=== PATIENT | male | born 1955 | race Caucasian/White ===

== ENCOUNTER → 2024-03-13 07:08 | Outpatient (REF) | payer MEDICARE, OTHER, SELFPAY | LOC: HWRCS 07:08 | PROVIDERS: ATTENDING PHYSICIAN Family Medicine | DX: I35.0 Nonrheumatic aortic (valve) stenosis (principal) | CPT/HCPCS: 93306 ==

== ENCOUNTER 2024-05-09 06:12 | Day surgery (SDC) | payer MEDICARE, OTHER, SELFPAY ==
[2024-05-09] VITALS (11 sets, daily range): BP systolic 83–142; BP diastolic 58–88; BMI 43.6
[2024-05-09] MEDS: NSS 401 ML IV (06:58)
[2024-05-09] MEDS: LOW STRENGTH ASPIRIN 324 MG PO (06:59)
[2024-05-09 07:03] LABS: Hematocrit 41.5 % (39.0-52.0); Hemoglobin 14.8 g/dL (13.0-18.0); Mean Corp Hgb Conc. 35.7 g/dL (33.0-37.0); Mean Corpuscular Hgb 33.6 pg (27.0-31.0); Mean Corpuscular Volume 94.1 fL (80.0-94.0); Mean Platelet Volume 9.6 fL (7.4-10.4); Platelet Count 178 10^3/uL (130-400); Red Blood Cell Count 4.41 10^6/uL (4.70-6.10); Red Cell Dist. Width 12.8 % (11.5-14.5)
[2024-05-09 07:18] LABS: INR 1.08; PT 13.8 Sec (11.4-14.6)
[2024-05-09 07:19] LABS: APTT 34.2 Sec (23.4-35.0)
[2024-05-09 07:24] LABS: ALT (SGPT) 25 U/L (0-50); AST (SGOT) 27 U/L (17-59); Albumin 4.3 g/dl (3.5-5.0); Alkaline Phosphatase 62 U/L (38-126); Blood Urea Nitrogen 16 mg/dl (9-20); Calcium 9.6 mg/dl (8.4-10.2); Carbon Dioxide 26 mmol/L (22-30); Chloride 104 mmol/L (98-107); Estimated Creatinine Clearance 104 ml/min; Glucose 180 mg/dl (70-99); Potassium 4.5 mmol/L (3.5-5.1); Sodium 137 mmol/L (135-145); Total Bilirubin 0.7 mg/dl (0.2-1.3); Total Protein 6.9 g/dl (6.3-8.2); eGFR > 60.00
--- NOTE | 2024-05-09 07:34 | ITS.CL.CATH ---
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
Cardiac Catheterization
Procedure Report:
LEFT HEART CATHETERIZATION
Date of Procedure: May 09, 2024
Referring: Fuentes Hayes.
PROCEDURES:
1. Left Heart catheterization and coronary angiogram.
2. Ultrasound-guided
INDICATION: Mr France is a 68-year-old gentleman with morbid obesity, hypertension, hyperlipidemia, prediabetes, prostate cancer status post surgery in 2018 now in remission with ongoing dyspnea on exertion found to now have severe aortic stenosis
with mean transaortic gradient of 49 mmHg on most recent echocardiogram on March 13, 2024 now being referred for left heart catheterization to rule out obstructive CAD and initiate TAVR workup.
ACCESS: Right radial artery, 6 Persian sheath, under ultrasound guidance
HEMODYNAMICS : (mmHg)
AO (s/d) : 111/74
Aortic valve was not crossed in the setting of severe aortic stenosis which is known by echocardiogram
CORONARY FINDINGS
DOMINANCE: Right
LEFT MAIN: The left main artery is a large-caliber vessel which gives rise to the left anterior descending artery, the left circumflex artery and the ramus intermedius artery. There is mild 20% tapering of the distal left main but otherwise minimal
luminal irregularities.
LEFT ANTERIOR DESCENDING: The left anterior descending artery is a medium to large caliber vessel which gives rise to 2 small caliber diagonal branches as it courses through the anterior interventricular groove towards the apex. There is a
calcified 80% mid LAD stenosis at the level of the takeoff of a small caliber D1 and the septal branch. D1 also has eccentric 70% ostial stenosis.
CIRCUMFLEX: The left circumflex artery is a medium caliber vessel which gives rise to small caliber left posterolateral branches. There is minimal luminal irregularities.
RAMUS INTERMEDIUS: The ramus intermedius branch is a medium caliber vessel which gives rise to 1 major branch. There is 30% stenosis in the mid vessel.
RIGHT CORONARY ARTERY: The right coronary artery is a large-caliber, dominant vessel which gives rise to the right posterior descending artery and the right posterolateral system. There is a 30 to 40% eccentric stenosis in the mid to distal RCA.
Otherwise there is mild diffuse atherosclerotic plaque.
SEDATION: 21 minutes of procedural sedation was utilized. An independent biomedical service engineer was present to assist with and help manage the patient's level of consciousness and physiologic status.
RADIATION SUMMARY: Fluoro Time (min): 3.5, Dose (mGy): 497.78, DAP (Gy.cm2) : 31.2
Closure Device: Vascular band over right radial artery, 10 cc of air
CONCLUSIONS
1. Significant one-vessel coronary artery disease involving mid LAD which has a calcified 80% stenosis at the level of the takeoff of a small caliber diagonal branch and the septal branch. D1 also has an eccentric 70% ostial stenosis.
2. Mild to moderate coronary artery disease otherwise.
3. Known symptomatic severe aortic stenosis with most recent echocardiogram in February 2024 showing a mean transaortic gradient of 49 mmHg.
RECOMMENDATIONS
1. Continue with CT of chest abdomen and pelvis per TAVR protocol and CT surgery consult with plan for subsequent discussion at the structural heart meeting in regards to candidacy for PCI/TAVR versus single-vessel CABG/SAVR.
2. Optimization of goal-directed medical therapy in the meantime and aggressive management of cardiovascular risk factors.
3. Wean radial band per protocol.
Copy to: Fuentes Hayes.
Afia Johnson MD, [facility], [facility]
--- NOTE | 2024-05-09 08:39 | CONSULT.STRU ---
Consultation
-
Date/Time Consultation Requested: 05/09/2024
Date/Time Consultation Performed: 05/09/2024
Requesting Provider: Afia Johnson MD
Performing Provider: KYLE Phelan
Reason for Consultation: /TAVR
Patient History
Physicians
Family Physician: Marco Epperson DO
Outpatient Phonograph Needle Tip Maker: Clark Arce DO
Primary Phonograph Needle Tip Maker: Clark Arce DO
History of Present Illness
Mr. 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 Echocardiogram from 03/13/2024 is notable for: EF 60-65%, AV P/M 77/49, ALY 1.0, no AI, MAC, trace MR, trivial TR, PAP
21. Cardiac catheterization from today (05/09/2024) is notable for 70% stenosis in mLAD. Reviewed the pathophysiology and treatment options of including SAVR and TAVR. Explained the evaluation process comprising of CT scan, CT surgical consult,
dental clearance, and a heart team discussion. TAVR booklet, prescriptions, appointments, and contact information given to patient. Allowed for and answered questions at bedside.
Past Medical History
Past Medical History: CAD (mLAD), HTN, Hypercholesterolemia, NIDDM, REY (CPAP), Valvular Disease (aortic stenosis) and Other (osteoarthritis, prostate cancer, urinary incontinence, colon polyps, varicella)
Past Surgical History
Past Surgical History: Appendectomy, Urological (Prostatectomy, artificial urinary sphincter) and Other (bilateral cataract surgery)
Dental History
Dr. Gutierrez and Dr. Anderson--Dental clearance form faxed
Family History
Mother: at Age (75) and Cause of (cancer)
Father: at Age (85) and Cause of
Family Medical History: CAD and Cancer
Social History
Alcohol: Occasional
Drug: None
Tobacco: Non-Smoker
Personal:
Living: Alone
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
Allergies
Allergy/AdvReac Type Severity Reaction Status Date / Time
No Known Allergies Allergy Unverified 05/09/24 07:05
Home Medications
�Medication �Instructions �Recorded �Confirmed �Type
aspirin 81 mg tablet,delayed 81 mg PO HS 07/15/18 05/09/24 History
release
cholecalciferol (vitamin D3) 25 1,000 unit PO HS 07/15/18 05/09/24 History
mcg (1,000 unit) capsule (Vitamin
D3)
lisinopril 5 mg tablet 5 mg PO DAILY ##30 08/10/18 05/09/24 Rx
ascorbic acid (vitamin C) 500 mg 500 mg PO DAILY 05/09/24 05/09/24 History
tablet (Vitamin C)
metoprolol succinate 25 mg 25 mg PO DAILY #90 tabs 05/09/24 Rx
tablet,extended release 24 hr
(Toprol XL)
rosuvastatin 40 mg tablet 40 mg PO DAILY #90 tabs 05/09/24 Rx
STS%
STS %: 2.297 (AVR+CABG), 0.965 (AVR)
Review of Systems
-
History Source: Patient
General: Reports No Symptoms
HEENT: Reports No Symptoms
Respiratory: Reports Other (mild LAGUNA)
Cardiac: Reports No Symptoms
Abdomen/GI: Reports No Symptoms
: Reports No Symptoms
Musculoskeletal: Reports No Symptoms
Skin: Reports No Symptoms
Neurological: Reports No Symptoms
Vascular: Reports No Symptoms
Physical Exam
Vital Signs
Temp 97.9 F 05/09/24 06:31
Temp route: Oral 05/09/24 06:31
Pulse 70 05/09/24 07:05
Resp Rate 17 05/09/24 07:05
Blood pressure 126/69 05/09/24 07:05
Blood pressure extremity used: Right upper arm 05/09/24 08:18
Position: Lying 05/09/24 08:18
MAP (cuff-Antoni Monitor) 87 05/09/24 07:05
SaO2 97 05/09/24 07:05
Oxygen Mode of Delivery Room air 05/09/24 08:18
Can the patient verbally communicate their pain? Yes 05/09/24 08:18
Actual Weight 133.81 kg 05/09/24 06:25
Body Mass Index (BMI) 43.6 05/09/24 06:25
Labs
05/09/24 06:30
05/09/24 06:30
PT 13.8 Sec (11.4-14.6) 05/09/24 06:30
APTT 34.2 Sec (23.4-35.0) 05/09/24 06:30
Diagnostic Studies
Echocardiogram: 03/10/2024:
Left Ventricle
Normal left ventricular size and systolic function. Mild concentric left
ventricular hypertrophy. No regional wall motion abnormalities are seen. LV
ejection fraction is 60-65% by Polanco's method of discs. Normal diastolic
function.
Right Ventricle
Normal right ventricular size and function.
Left Atrium
Indexed LA volume is within normal range (15-34 mL/m2).
Right Atrium
Normal right atrial size.
Mitral Valve
Mitral valve opens normally. Thickened mitral valve leaflets with mitral
annular calcification. Trace mitral regurgitation.
Aortic Valve
Thickened and calcified aortic valve with severe aortic stenosis. Peak/mean
gradients across the aortic valve are 77/49 mmHg, respectively. The aortic
diameter of 2.3 cm. No aortic regurgitation is seen.
Tricuspid Valve
Tricuspid valve opens normally with trivial tricuspid regurgitation. Estimated
pulmonary artery pressure of 21 mmHg assuming a right atrial pressure of 3
mmHg.
Pulmonic Valve
Pulmonic valve is grossly normal but poorly visualized. No pulmonic
regurgitation is seen.
Pericardium\\Pleura
No pericardial or pleural effusions seen.
Aorta
Normal size aortic root and normal size aorta. The aortic arch is normal in
caliber.
Other Finding
The IVC is of normal size and demonstrates normal respiratory variation.
Interatrial septum is intact with no evidence of shunting by color flow
Doppler.
MEASUREMENTS (Male / Female) Normal Values
2D ECHO
LV Diastolic Diameter PLAX 4.1 cm 4.2 - 5.9 / 3.9 - 5.3 cm
LV Systolic Diameter PLAX 2.7 cm
IVS Diastolic Thickness 1.1 cm 0.6 - 1.0 / 0.6 - 0.9 cm
LVPW Diastolic Thickness 1.2 cm 0.6 - 1.0 / 0.6 - 0.9 cm
LV Relative Wall Thickness 0.6
LVOT Diameter 2.3 cm
LV Ejection Fraction MOD BP 64.6 % >= 55 %
LV Stroke Volume MOD BP 64.0 cm3
LV Cardiac Index MOD BP 1833.4 cm3/min
LV Stroke Volume MOD 4C 53.0 cm3
LV Stroke Volume 4C AL 55.3 cm3
LV Stroke Volume MOD 2C 64.0 cm3
LV Stroke Volume 2C AL 65.7 cm3
LA Area 4C View 25.5 cm2 <= 20 cm2
LA Length 4C 6.6 cm
LA Volume 78.0 cm3 18 - 58 / 22 - 52 cm3
LA Volume Index 27.9 cm3/m2 16 - 34 cm3/m2
Ascending Aorta Diameter 3.2 cm
Aortic Arch Diameter 2.7 cm
DOPPLER
AV Peak Velocity 379.0 cm/s
AV Peak Gradient 57.5 mmHg
AV Mean Gradient 35.0 mmHg
AV Velocity Time Integral 83.1 cm
LVOT Peak Velocity 91.7 cm/s
LVOT Peak Gradient 3.4 mmHg
LVOT Velocity Time Integral 22.9 cm
LVOT Stroke Volume 95.1 cm3
LVOT Stroke Volume Index 36.3 ml/m2 empty
LVOT Cardiac Index 2725.5 cm3/min\\m2
AV Area Cont Eq vti 1.1 cm2
AV Area Cont Eq pk 1.0 cm2
Mitral E Point Velocity 104.0 cm/s
Mitral A Point Velocity 94.8 cm/s
Mitral E to A Ratio 1.1
LV E' Lateral Velocity 9.9 cm/s
Mitral E to LV E' Lateral Ratio 10.5
LV E' Septal Velocity 8.4 cm/s
Mitral E to LV E' Septal Ratio 12.4
Pulmonary Vein S/D Ratio 1.3
TR Peak Velocity 213.0 cm/s
TR Peak Gradient 18.1 mmHg
PV Peak Velocity 143.0 cm/s
PV Peak Gradient 8.2 mmHg
Cardiac catheterization 05/09/2024:
CONCLUSIONS
1. Significant one-vessel coronary artery disease involving mid LAD which has a calcified 80% stenosis at the level of the takeoff of a small caliber diagonal branch and the septal branch. D1 also has an eccentric 70% ostial stenosis.
2. Mild to moderate coronary artery disease otherwise.
3. Known symptomatic severe aortic stenosis with most recent echocardiogram in February 2024 showing a mean transaortic gradient of 49 mmHg.
RECOMMENDATIONS
1. Continue with CT of chest abdomen and pelvis per TAVR protocol and CT surgery consult with plan for subsequent discussion at the structural heart meeting in regards to candidacy for PCI/TAVR versus single-vessel CABG/SAVR.
2. Optimization of goal-directed medical therapy in the meantime and aggressive management of cardiovascular risk factors.
3. Wean radial band per protocol.
Exam
General: No Apparent Distress and Other (Obese)
HEENT: Normocephalic
Neck: Trachea Midline
Respiratory: Clear
Cardiac: Regular Rhythm and Murmur (II/ CHANELL)
GI: Soft and Non Tender
Rectal: Deferred by Provider
Skin: Warm
Neuro: Awake, Alert, Oriented and AO x 3
Extremities: Lower Level Edema (LLE)
Psych: Calm
Assessment / Plan
-
Aortic Stenosis
Continue with TAVR/SAVR evaluation
Trend creatinine after contrast (Rx given)
TAVR CT scan (05/23)
CT surgical consult (TT 05/25)
Frailty and KCCQ12 at consult
Continue Aspirin
Dental clearance
T/c nurses educator consult with TAVR admission
Heart team discussion
CAD: T/c AVR+ CABG vs. TAVR + PCI
Continue aspirin/ metoprolol/ rosuvastatin
CT surgical consult + Heart team discussion
Data Reviewed
-
EKG: Tracing Personally Visualized and interpreted (NSR w/ 1st degree AVB, TWI in lateral leads)
Business Insurance Agent: Report Reviewed by me and Discussed with Physician
Echo: Report Reviewed by me and Discussed with Physician
Labs: Labs Reviewed by me
Old Records: Reviewed (Dr. Arce's office visit)
Total Time Spent with Patient (in minutes): 45
== END 2024-05-09 11:08 | disposition home or self-care (01) ==
LOC: CATH 06:12
PROVIDERS: ATTENDING PHYSICIAN Internal Medicine Interventional Cardiology; FAMILY PHYSICIAN Family Medicine; OTHER PHYSICIAN Internal Medicine Cardiovascular Disease
DX: I25.10 Atherosclerotic heart disease of native coronary artery without angina pectoris (principal); I35.0 Nonrheumatic aortic (valve) stenosis; I10 Essential (primary) hypertension; E78.00 Pure hypercholesterolemia, unspecified; E11.9 Type 2 diabetes mellitus without complications; G47.33 Obstructive sleep apnea (adult) (pediatric); Z85.46 Personal history of malignant neoplasm of prostate; Z82.49 Family history of ischemic heart disease and other diseases of the circulatory system; Z79.82 Long term (current) use of aspirin
CPT/HCPCS: 99152; 80053; 85027; 85610; 85730; 93454; C1894; Q9967

== ENCOUNTER → 2024-05-17 10:28 | Outpatient (REF) | payer MEDICARE, OTHER, SELFPAY ==
[2024-05-17 13:05] LABS: Blood Urea Nitrogen 16 mg/dl (9-20); Calcium 9.9 mg/dl (8.4-10.2); Carbon Dioxide 26 mmol/L (22-30); Chloride 103 mmol/L (98-107); Glucose 122 mg/dl (70-99); Potassium 4.4 mmol/L (3.5-5.1); Sodium 141 mmol/L (135-145); eGFR > 60.00
== END ==
LOC: REG 10:28
PROVIDERS: ATTENDING PHYSICIAN Nurse Practitioner Acute Care; FAMILY PHYSICIAN Family Medicine
DX: I35.0 Nonrheumatic aortic (valve) stenosis (principal)
CPT/HCPCS: 36415; 80048

== ENCOUNTER → 2024-05-23 09:08 | Outpatient (REF) | payer MEDICARE, OTHER, SELFPAY | LOC: RAD 09:08 | PROVIDERS: ATTENDING PHYSICIAN Nurse Practitioner Acute Care; FAMILY PHYSICIAN Family Medicine | DX: I35.0 Nonrheumatic aortic (valve) stenosis (principal) | CPT/HCPCS: 74174; 75572; Q9967 ==

== ENCOUNTER 2024-06-08 08:07 | Day surgery (SDC) | payer MEDICARE, OTHER, SELFPAY ==
[2024-06-08] VITALS (19 sets, daily range): BP systolic 112–154; BP diastolic 62–91; BMI 42.1
[2024-06-08] MEDS: LOW STRENGTH ASPIRIN 81 MG PO (09:07)
[2024-06-08 11:00] LABS: ACT-LR - POC 294 Seconds (116-155)
[2024-06-08] MEDS: NSS 1000 IV (13:11)
--- NOTE | 2024-06-08 17:08 | ITS.CL.CATH ---
Irrigation Installation Specialist - Catheterization
Cardiac Catheterization
Procedure Report:
LEFT HEART CATHETERIZATION
Date of Procedure: June 08, 2024
Referring: Fuentes Hayes.
PROCEDURES:
1. Selective left coronary angiogram
2. Ultrasound-guided access
INDICATION: Mr France is a 68-year-old gentleman with morbid obesity, hypertension, hyperlipidemia, prediabetes, prostate cancer status post surgery in 2018 now in remission with ongoing dyspnea on exertion found to now have severe aortic stenosis
with mean transaortic gradient of 49 mmHg on most recent echocardiogram on March 13, 2024 presenting back to the heart catheterization lab for planned IVUS of distal left main and possible intervention to mid LAD.
ACCESS: Right radial artery, 6 Nepalese sheath, under ultrasound guidance.
HEMODYNAMICS : (mmHg)
AO (s/d) : 118/64
Aortic valve was not crossed in the setting of severe aortic stenosis which is known by echocardiogram
CORONARY FINDINGS
DOMINANCE: Right
LEFT MAIN: The left main artery is a large-caliber vessel which gives rise to the left anterior descending artery, the left circumflex artery and the ramus intermedius artery. There is mild 30% tapering of the distal left main with IVUS Alderson
Circle eye catheter showing an MLA more than 6mm2
LEFT ANTERIOR DESCENDING: The left anterior descending artery is a medium to large caliber vessel which gives rise to 2 small caliber diagonal branches as it courses through the anterior interventricular groove towards the apex. There is a
calcified 80% mid LAD stenosis at the level of the takeoff of a small caliber D1 and the septal branch. D1 also has eccentric 70% ostial stenosis. Upon interrogation of the distal left main with IVUS [place] Circle eye catheter, a calcified ostial
LAD stenosis was appreciated with MLA of 5.2mm2
CIRCUMFLEX: The left circumflex artery is a medium caliber vessel which gives rise to small caliber left posterolateral branches. There is minimal luminal irregularities.
RAMUS INTERMEDIUS: The ramus intermedius branch is a medium caliber vessel which gives rise to 1 major branch. There is 30% stenosis in the mid vessel.
RIGHT CORONARY ARTERY: On recent heart catheterization from April,, the right coronary artery is a large-caliber, dominant vessel which gives rise to the right posterior descending artery and the right posterolateral system. There was 30 to
40% eccentric stenosis in the mid to distal RCA. Otherwise there was mild diffuse atherosclerotic plaque.
SEDATION: 67 minutes of procedural sedation was utilized. An independent medical director/head team physician was present to assist with and help manage the patient's level of consciousness and physiologic status.
RADIATION SUMMARY: Fluoro Time (min): 6.1, Dose (mGy): 401.6, DAP (Gy.cm2) : 23.1
Closure Device: Vascular band over right radial artery, 10 cc of air
CONCLUSIONS
1. Significant one-vessel coronary artery disease involving calcified ostial and mid LAD.
2. Mild to moderate coronary artery disease otherwise.
3. Known symptomatic severe aortic stenosis with most recent echocardiogram in February 2024 showing a mean transaortic gradient of 49 mmHg.
RECOMMENDATIONS
1. Discussion was had with Dr. Jaylen Barnes, CT surgery, with plan for single-vessel coronary artery bypass grafting and surgical AVR as best treatment option in this case.
2. Optimization of goal-directed medical therapy in the meantime and aggressive management of cardiovascular risk factors.
3. Wean radial band per protocol.
Copy to: Fuentes Hayse., Jaylen Barnes MD
Afia Johnson MD, [facility], [facility]
== END 2024-06-08 15:48 | disposition home or self-care (01) ==
LOC: CATH 08:07
PROVIDERS: ATTENDING PHYSICIAN Internal Medicine Interventional Cardiology; FAMILY PHYSICIAN Family Medicine; OTHER PHYSICIAN Internal Medicine Cardiovascular Disease
DX: I25.10 Atherosclerotic heart disease of native coronary artery without angina pectoris (principal); R06.09 Other forms of dyspnea; I35.0 Nonrheumatic aortic (valve) stenosis; I10 Essential (primary) hypertension; E11.9 Type 2 diabetes mellitus without complications; E78.00 Pure hypercholesterolemia, unspecified; G47.33 Obstructive sleep apnea (adult) (pediatric); E66.9 Obesity, unspecified; Z68.41 Body mass index [BMI] 40.0-44.9, adult; Z85.46 Personal history of malignant neoplasm of prostate; Z79.82 Long term (current) use of aspirin
CPT/HCPCS: 92978; 99153; 99152; C1769; C1894; C1753; 93454; Q9967

== ENCOUNTER 2024-07-14 08:32 | Inpatient (IN) | payer MEDICARE, OTHER, SELFPAY ==
[2024-06-20 08:36] VITALS: BMI 42.0
[2024-06-20 09:03] LABS: % Basophils 0.5 % (0-2); % Eosinophils 2.5 % (0-6); % Immature Granulocytes 0.6 % (0-0.5); % Lymphocytes 18.8 % (20.5-51.1); % Monocytes 7.9 % (1.7-9.3); % Neutrophils 69.7 % (42.2-75.2); Absolute Eosinophils 0.2 10^3/uL (0-0.7); Absolute Lymphocytes 1.2 10^3/uL (1.2-3.4); Absolute Monocytes 0.5 10^3/uL (0.1-0.6); Absolute Neutrophils 4.5 10^3/uL (1.4-6.5); Hemoglobin 14.8 g/dL (13.0-18.0); Mean Corp Hgb Conc. 35.2 g/dL (33.0-37.0); Mean Corpuscular Hgb 32.1 pg (27.0-31.0); Mean Corpuscular Volume 91.1 fL (80.0-94.0); Mean Platelet Volume 9.3 fL (7.4-10.4); Nucleated Red Blood Cells % 0 % (-); Platelet Count 162 10^3/uL (130-400); Red Blood Cell Count 4.61 10^6/uL (4.70-6.10); White Blood Cell Count 6.4 10^3/uL (4.8-10.8)
[2024-06-20 09:10] LABS: Urine Albumin Negative (Neg - Trace); Urine Bilirubin Negative (Negative); Urine Character Clear (Clear); Urine Color Yellow; Urine Glucose Negative (Negative); Urine Ketone Negative (Negative); Urine Leukocyte Negative (Negative); Urine Nitrite Negative (Negative); Urine Occult Blood Negative (Negative); Urine Urobilinogen Negative (Neg - 1+)
[2024-06-20 09:14] LABS: INR 1.11; PT 14.1 Sec (11.4-14.6)
[2024-06-20 09:15] LABS: APTT 35.3 Sec (23.4-35.0)
[2024-06-20 09:34] LABS: ALT (SGPT) 27 U/L (0-50); AST (SGOT) 26 U/L (17-59); Albumin 4.5 g/dl (3.5-5.0); Alkaline Phosphatase 49 U/L (38-126); Blood Urea Nitrogen 14 mg/dl (9-20); Calcium 9.8 mg/dl (8.4-10.2); Carbon Dioxide 25 mmol/L (22-30); Chloride 103 mmol/L (98-107); Direct Bilirubin 0.2 mg/dl (0.0-0.4); Estimated Creatinine Clearance 102 ml/min; Glucose 132 mg/dl (70-99); Potassium 4.3 mmol/L (3.5-5.1); Sodium 141 mmol/L (135-145); Total Bilirubin 0.7 mg/dl (0.2-1.3); Total Protein 7.2 g/dl (6.3-8.2); eGFR > 60.00
--- NOTE | 2024-06-20 15:46 | CM ---
spoke to pt and son in PAT's, we discussed preop CABG/AVR teaching including sternal and driving restrictions. he is prev indep, lives alone in a 2 story hoe with 6 steps to enter. he has a cpap he uses and was told he can bring in his own mask. he
has a cane and a walker at home to use if needed. he has the ct surgery educ book, soap and instructions, he is agreeable to a f/u visit from the ct transitional care nurse after dc. his son will be staying with him for a few days after dc. cm role
explained and all questions answered. plan is for CABG/AVR 07/07.
[2024-07-14 08:55] VITALS: BP 125/64
[2024-07-14 08:58] VITALS: BP 122/70
[2024-07-14 09:00] VITALS: BP 122/70; BMI 40.7
--- NOTE | 2024-07-14 09:00 | PTCARENOTE ---
Patient admitted into CVICU room 2268 accompanied by son, Goran Edwards. Clipped and prepped in the usual cvicu protocol. Final CHG cloth bath given. Explained modified contact precautions: positive MRSA swabs in 06/2018 and 06/2024. Neuro intact.
Larisa here and consulted: patient has hx of prostatectomy with placement of urinary sphincter: urinary sphincter turned off of urology and saleh catheter inserted. Normotensive and all preop meds given.
[2024-07-14] MEDS: PROTONIX 40 MG PO (09:14)
[2024-07-14] MEDS: LOPRESSOR 12.5 MG PO (09:14)
[2024-07-14] MEDS: MAGNESIUM OXIDE 500 MG PO (09:14)
--- NOTE | 2024-07-14 10:27 | CONS.URO ---
Consultation
-
Date/Time Consultation Requested: 07/14/24
Date/Time Consultation Performed: 07/14/24910
Performing Provider: Bertin
Reason for Consultation: AUS deactivation/Carter placement
Medical History
History of Present Illness
68 yo male for AVR and CABG.
s/p Robotic Prostatectomy by Dr Hever Swanson in 2017 for cancer
s/p AUS placement by Dr Joshua Collado at [facility] during 2022
consultation requested to deactivate AUS and place Carter for OR
Past Medical History
Past Medical History: CAD, Cancer (prostate) and Other (Aortic Valve stenosis)
Past Surgical History: Urological (see HPI)
Allergies/Home Medications
Allergies
Allergy/AdvReac Type Severity Reaction Status Date / Time
No Known Allergies Allergy Unverified 05/09/24 07:05
Home Medications
�Medication �Instructions �Recorded �Confirmed �Type
aspirin 81 mg tablet,delayed 81 mg PO HS 07/15/18 07/14/24 History
release
cholecalciferol (vitamin D3) 25 1,000 unit PO HS 07/15/18 07/14/24 History
mcg (1,000 unit) capsule (Vitamin
D3)
lisinopril 5 mg tablet 5 mg PO DAILY ##30 08/10/18 07/14/24 Rx
ascorbic acid (vitamin C) 500 mg 500 mg PO DAILY 05/09/24 07/14/24 History
tablet (Vitamin C)
metoprolol succinate 25 mg 25 mg PO DAILY #90 tabs 05/09/24 07/14/24 Rx
tablet,extended release 24 hr
(Toprol XL)
rosuvastatin 40 mg tablet 40 mg PO DAILY #90 tabs 05/09/24 07/14/24 Rx
Physical Exam
Vital Signs
Vital Signs
Temp Pulse Resp BP Pulse Ox
98.1 F 78 20 122/70 97
07/14/24 09:00 07/14/24 09:00 07/14/24 09:00 07/14/24 09:00 07/14/24 09:00
Lab / Testing Results
Laboratory Results
06/20/24 08:46
06/20/24 08:46
Physical Exam
adult male
verbal consent obtained to deactivate AUS and place Carter
Procedure: AUS pump squeezed 3x then locked; pump indentation confirmed--> pale pink urine dripped freely
Phallus prepped then 14 Fr Carter freely passed; balloon inflated; affixed to 2 L drainage bag with pale urine outflow
Assessment / Plan
-
SAMIA managed by AUS
AUS deactivated/locked in open position then Carter placed
Rec: remove Carter JOSE DAVID post-op then apply external/condom catheter; Dr Gallardo will see pt over weekend to reactive AUS
Data Reviewed
-
Old Records: Reviewed
[2024-07-14] MEDS: BACTROBAN 2% OINTMENT 1 APPLIC NASAL ×2 (10:36→20:24)
--- NOTE | 2024-07-14 10:40 | PTCARENOTE ---
Patient taken to CVOR via bed: preop SBAR provided. Report given at bedside to Silvia Edmondson RN
--- NOTE | 2024-07-14 10:50 | W.CVOR.SURPR ---
CVOR Surgeon Immed Pre Op
-
I have examined this patient prior to performance of the scheduled procedure.
The patient's condition is unchanged from the time of the dictated/written History and
Physical and the patient is able to undergo the scheduled procedure.
Sternotomy, AVR (bio), VÁZQUEZ-LAD, IAN clip
--- NOTE | 2024-07-14 11:09 | CM ---
Reviewed chart. Mr. Franec is in the operating room today. Prior to admission he resides alone in a two story home with six steps to enter. Prior to admission was independent with ambulation and adls. He uses a CPAP Machine. He has a CPAP Machine,
walker and single point cane at home. His son will be staying with him for a few days when he goes home. Medical work-up in progress. The discharge plan is to return home with his son staying with him and a home visit by the Transitional Care
Nurse when medically stable.
[2024-07-14 12:32] LABS: ACT+ - POC 107 Seconds (82-134)
[2024-07-14 14:17] LABS: ACT+ - POC 717 Seconds (82-134)
[2024-07-14 14:38] LABS: B.E. - POC -0.3 mmol/L; Glucose - POC 130 mg/dl (70-99); HCO3 - POC 24 mmol/L (21-29); Hematocrit - POC 43 % PCV (42-52); Hemodilution- POC No; Hemoglobin Calculated - POC 14.8; Ionized Calcium - POC 1.25 mmol/L (1.12-1.27); O2 Saturation %Calculated-POC 98.6 % (92-96); PCO2 - POC 38 mmHg (35-45); PO2 - POC 115 mmHg (80-100); POC Comment PRE; Potassium - POC 4.1 mmol/L (3.6-5.0); Sodium - POC 141 mmol/L (135-145); pH - POC 7.41 (7.35-7.45)
[2024-07-14 14:48] LABS: ACT+ - POC 540 Seconds (82-134)
[2024-07-14 15:07] LABS: B.E. - POC 2.5 mmol/L; Glucose - POC 187 mg/dl (70-99); HCO3 - POC 27 mmol/L (21-29); Hematocrit - POC 33 % PCV (42-52); Hemodilution- POC Yes; Hemoglobin Calculated - POC 11.2; Ionized Calcium - POC 1.09 mmol/L (1.12-1.27); PCO2 - POC 40 mmHg (35-45); PO2 - POC 394 mmHg (80-100); POC Comment CPB; Potassium - POC 4.8 mmol/L (3.6-5.0); Sodium - POC 139 mmol/L (135-145); pH - POC 7.44 (7.35-7.45)
[2024-07-14 15:36] LABS: ACT+ - POC 586 Seconds (82-134)
[2024-07-14 15:36] LABS: ACT+ - POC 481 Seconds (82-134)
[2024-07-14 15:54] LABS: B.E. - POC 1.3 mmol/L; Glucose - POC 230 mg/dl (70-99); HCO3 - POC 27 mmol/L (21-29); Hematocrit - POC 35 % PCV (42-52); Hemodilution- POC Yes; Ionized Calcium - POC 1.14 mmol/L (1.12-1.27); O2 Saturation %Calculated-POC 99.8 % (92-96); PCO2 - POC 44 mmHg (35-45); PO2 - POC 244 mmHg (80-100); POC Comment CPB; Potassium - POC 4.6 mmol/L (3.6-5.0); Sodium - POC 139 mmol/L (135-145); pH - POC 7.39 (7.35-7.45)
[2024-07-14 15:58] LABS: ACT+ - POC 109 Seconds (82-134)
[2024-07-14 16:00] LABS: Glucose - POC 199 mg/dl (70-99); HCO3 - POC 24 mmol/L (21-29); Hematocrit - POC 38 % PCV (42-52); Hemodilution- POC Yes; Hemoglobin Calculated - POC 12.9; Ionized Calcium - POC 1.33 mmol/L (1.12-1.27); O2 Saturation %Calculated-POC 99.9 % (92-96); PCO2 - POC 43 mmHg (35-45); PO2 - POC 347 mmHg (80-100); POC Comment POST; Potassium - POC 3.9 mmol/L (3.6-5.0); Sodium - POC 141 mmol/L (135-145); pH - POC 7.37 (7.35-7.45)
--- NOTE | 2024-07-14 16:33 | CON.INTV ---
Consultation
Consultation Request
Date/Time Consultation Requested: 07/14/2024 - 160
Date/Time Consultation Performed: 07/14/2024 - 162
Requesting Provider: Richa Sims PA-C
Performing Provider: Jose Beltran MD
Reason for Consultation: s/p SAVR + CABG x1
Medical History
-
Chief Complaint: Elective SAVR + CABG x 1
History of Present Illness:
68-year-old morbidly obese male non-smoker with a past medical history of CAD involving ostial�mid LAD, severe aortic stenosis, history of colon polyps, prostate cancer s/p robotic prostatectomy complicated by urinary incontinence, history of
varicella, REY on CPAP, seasonal allergies and DM type II who presents with elective SAVR + CABG x 1. He is known to the cardiothoracic service with last visit on 06/15/[address] Barnes. He has a history of significant one-vessel disease
involving his ostial LAD and mid LAD. He also has severe aortic stenosis. Cardiothoracic operative intervention was discussed with CABG + aortic valve replacement. Risks and benefits were reviewed in detail and he opted for SAVR + CABG x1 with
IAN-exclusion which he received today. Procedure went well with no immediate complications and he was transferred to the CVICU postoperatively, and paper deliverer services consulted for additional management/recommendations.
When I saw the patient he was resting in bed in no acute distress on SIMV at 12/500/60%/5, and pressure support of 5. PIP was 26 cmH2O, VTe 544 mL and breathing at 12 breaths/min. He was on Precedex 0.5mcg/kg/hr. heart rate 77, BP via right radial
A-line: 109/61, PAP: 30/21 and saturating 99%. He has 2 mediastinal chest tubes + left pleural chest tube x 1.
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
proteinuria, morbid obesity, hypertension, urinary incontinence s/p prostatectomy, CAD involving LAD, aortic stenosis
PSHx: Appendectomy, robotic prostatectomy, artificial urinary sphincter, cataract extractions bilaterally
Past Medical History
Past Medical History: Other (Above as per HPI)
Past Surgical History: Other (Above as per HPI)
Social History
Tobacco: Non-smoker
Alcohol: Occasional (Drinks alcohol twice a week)
Drug: None
Personal: ( of stage IV breast cancer)
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
Family History
Family History: Cancer (Father: Prostate cancer; mother: Breast cancer)
Allergies / Home Medications
Allergies
Allergy/AdvReac Type Severity Reaction Status Date / Time
No Known Allergies Allergy Unverified 05/09/24 07:05
Home Medications
�Medication �Instructions �Recorded �Confirmed �Last Taken �Type
aspirin 81 mg tablet,delayed 81 mg PO HS 07/15/18 07/14/24 07/13/24 23:00 History
release
cholecalciferol (vitamin D3) 25 1,000 unit PO HS 07/15/18 07/14/24 07/13/24 18:00 History
mcg (1,000 unit) capsule (Vitamin
D3)
lisinopril 5 mg tablet 5 mg PO DAILY ##30 08/10/18 07/14/24 07/11/24 10:00 Rx
ascorbic acid (vitamin C) 500 mg 500 mg PO DAILY 05/09/24 07/14/24 07/13/24 18:00 History
tablet (Vitamin C)
metoprolol succinate 25 mg 25 mg PO DAILY #90 tabs 05/09/24 07/14/24 07/13/24 20:00 Rx
tablet,extended release 24 hr
(Toprol XL)
rosuvastatin 40 mg tablet 40 mg PO DAILY #90 tabs 05/09/24 07/14/24 07/13/24 18:00 Rx
Review of Systems
-
Unable to Obtain full review of systems at this time due to: Patient Intubation
Vitals / Labs / Diagnostic Testing
Vital Signs
Temp Pulse Resp BP Pulse Ox
97.4 F 85 0 122/70 98
07/14/24 18:07 07/14/24 19:00 07/14/24 19:00 07/14/24 09:00 07/14/24 19:00
Lab Data
07/14/24 17:02
Laboratory Results
07/14/24
17:02
PT 17.2 H
INR 1.42
APTT 35.4 H
pH 7.33 L
pCO2 46
pO2 164 H
HCO3 24.3
O2 Delivery Level
Diagnostic Testing:
Physical Exam
-
HEENT: Normocephalic, Anicteric and Other (ETT in place)
Cardiovascular: S1/S2 and Peripheral Edema (negative)
Respiratory: Wheeze (negative), Rales (negative), Rhonchi (negative), Non-Labored Respirations, Other (Mechanical breath sounds heard bilaterally) and Other (chest tubes: mediastinal x 2+ left pleural x 1)
GI: Soft, Distended (Abdominal obesity), Non Tender and Normal Bowel Sounds
Neurology: Tremors (negative) and Other (Sedated)
Skin: Warm and Dry
General: Respiratory Distress (negative), Comfortable, Chills (negative) and Sweats (negative)
Assessment
-
Assessment: 68-year-old morbidly obese male non-smoker with a past medical history of CAD involving ostial�mid LAD, severe aortic stenosis, history of colon polyps, prostate cancer s/p robotic prostatectomy complicated by urinary incontinence,
history of varicella, REY on CPAP, seasonal allergies and DM type II who presents with elective SAVR + CABG x 1. He is known to the cardiothoracic service with last visit on 06/15/[address] Barnes. He has a history of significant one-vessel
disease involving his ostial LAD and mid LAD. He also has severe aortic stenosis. Cardiothoracic operative intervention was discussed with CABG + aortic valve replacement. Risks and benefits were reviewed in detail and he opted for SAVR + CABG x1
with IAN-exclusion which he received today. Procedure went well with no immediate complications and he was transferred to the CVICU postoperatively, and paper deliverer services consulted for additional management/recommendations.
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
prostatectomy, DM type II with proteinuria, morbid obesity, hypertension, urinary incontinence s/p prostatectomy, CAD involving LAD, aortic stenosis
Impression:
#Severe aortic valve stenosis s/p surgical aortic valve replacement with 25 mm bioprosthesis (POD #0)
#CAD involving the proximal LAD s/p CABG x 1 with left atrial appendage exclusion with 35mm clip (POD #0)
#Thrombocytopenia (mild)
#DM type II c/b hyperglycemia (mild)
#History of hypertension
#History of hyperlipidemia
#REY on CPAP
#History of prostate cancer s/p prostatectomy
Plan:
Ventilator settings reviewed
FiO2 will be weaned to maintain SpO2 >90-94%
Minute ventilation will be adjusted
Arterial blood gases will be monitored
Spontaneous breathing trial will be attempted with hopeful extubation after anesthesia/sedation wear off
Once extubated he should continue with CPAP with sleep
prn nebulized bronchodilators
Pulmonary artery catheter parameters will be followed
Pressors/antihypertensive/inotropes/diuretics will be provided as needed
Maintain MAP>65
Replete electrolytes with K>4, Mg>2
Monitor chest tube output (mediastinal chest tubes x 2+ left pleural chest tube x 1)
Monitor hemoglobin
Monitor platelet count and coags
Transfuse blood products as needed to maintain Hb>7g/dL, plt>50k (given post-operative status)
CT surgery managing chest tubes
Monitor blood sugar to maintain euglycemia with goal BG 140-180
Insulin drip per protocol
Aspiration precautions
VAP prevention protocol
DVT prophylaxis
Early nutrition
Early mobilization
Critical care statement: A total of 38 minutes of critical care time was provided for this patient today. This includes management of ventilator, spontaneous breathing trial, arterial blood gases, pressors, of unstable vital signs, evaluation of the
patient at bedside, reviewing the patient's pertinent medical records including radiographs, microbiology, laboratory evaluations, and discussion with primary team and critical care nursing.
--- NOTE | 2024-07-14 16:40 | W.PN.CT.SURG ---
CT Surgery Operative Note
-
CARDIAC SURGERY OPERATIVE REPORT
Preoperative Diagnosis: Severe aortic valve stenosis with single vessel coronary artery disease involving the proximal LAD
Postoperative Diagnosis: Same
Procedure(s) Performed:
1. Sternotomy with standard aortic and right atrial cannulation
2. Coronary artery bypass grafting x 1 (In situ VÁZQUEZ to LAD)
3. Surgical aortic valve replacement [25 mm bioprosthesis]
4. Left atrial appendage exclusion [35 mm clip]
5. Trans-esophageal echocardiography
6. Placement ventricular pacing wire
7. Rigid Sternal Fixation with 4 plates
Date of Surgery: 07/14/2024
Comorbidities:
1. Severe aortic valve stenosis, symptomatic
2. Single-vessel coronary disease involving the proximal LAD
3. Hypertension
4. Hyperlipidemia
5. Osteoarthritis
6. Multiple orthopedic issues
7. Morbidly obese with a BMI of 40
8. Diabetes mellitus type 2
9. Obstructive sleep apnea on CPAP
10. History of urinary incontinence artificial bladder sphincter
11. Prostate cancer status post prostatectomy
Attending Surgeon: Jaylen Barnes MD, MS
Assistants: Richa Sims PA-C (present and necessary to presser first, retraction, suction, exposure, suture management, and wound closure under my direction)
Anesthesiology: Clint Green MD and Sofía Lobo CRNA
Scrub and Circulating RNs: Mihai Kathleen RN, Isela Ann RN
Kraft Digester Operator: Tevin Shukla CCP
Anesthesia: GETA
EBL: per perfusion records
Products: None
CPB Time: 82 minutes
Aortic Cross Clamp Time: 72 minutes
Indication(s) for Procedures: This is a 68-year-old male with severe aortic valve stenosis who recently came symptomatic. As part of his preoperative workup he underwent left heart cath which found ostial IFR proven LAD disease. Multidisciplinary
team discussion was had, the patient was counseled on lifetime management for his aortic valve stenosis. He ultimately was recommended aortic valve replacement surgically as well as a VÁZQUEZ to LAD bypass graft and left atrial appendage exclusion.
He accepted those risks and so we proceeded.
Aortic Valve Description: Heavily calcified, tricuspid and aortic valve with fusion between the left and right coronary cusp due to calcification, heavy calcification into the annulus. The left and right coronary ostium within normal anatomic
positions at a good height.
Conduit(s) Quality:
VÁZQUEZ -excellent/skeletonized
Target(s) Quality:
LAD -good sized target/had excellent visual flow in the LAD territory, flow probe assessment demonstrated a mean flow of approximate 20cc with a pulsatility index of less than 3
Findings: LVEF on intraoperative MACARIO was 60% and 65% post procedure. There were no regional wall motion abnormalities. He had severe left ventricular hypertrophy. His aortic valve was replaced with a 25 mm prosthesis in inverted fashion from LVOT
through annulus through sewing cuff. We secured the valve with a total of 15 nonpledgeted 2 Ethibond sutures with core knots. There was no prosthetic PVL or AI. Mean gradient across the prosthesis was 9 mmHg even while he was hyperdynamic with a
cardiac index of well over 3. The VÁZQUEZ was harvested in a skeletonized fashion. Following bypass grafting, flow probe assessment of the graft demonstrated excellent mean flow and pulsatility index. His cardiac index after the surgery on no
inotropes was well over 3, he was sinus rhythm, did not require any blood products. His new aortic valve had normal leaflet excursion. The left atrial pannus was verified to be free of any thrombus or debris preoperatively on MACARIO and found to be
totally occlusive at the conclusion of the case.
Specimen(s): Aortic valve leaflets.
Prosthesis:
1. Medtronic 25 mm Avalus ultra biological valve, serial number: [id number]
2. Left atrial appendage exclusion clip, 35 mm clip, serial #[id number]
3. 4 gold plates( 3 box and 1 mustach) with 16 x 16 mm screws
Description of Procedure: The patient was taken to the operating room. Their identity and procedure to be performed were verified and they were positioned supine on the operating table. Induction via general anesthesia with endotracheal intubation
was performed and central venous access and arterial monitoring were inserted. A preoperative transesophageal echocardiogram was performed. The patient was then prepped and draped from chin to feet in a sterile fashion. A preoperative time-out was
performed with all members of the team present. A midline chest incision was performed along with median sternotomy. An initial 5,000 units of IV heparin was given. A RulTract sternal retractor was positioned to exposure the left internal mammary
bed. The mammary was harvested in a skeletonized fashion and found to have good flow. A bulldog clamp was applied to the distal end of the mammary after dividing it. It was wrapped in a papaverine soaked RayTec and replaced back into the left
hemithorax. The RulTract was exchanged for a median sternal retractor. The innominate vein was isolated. Full heparinization was given (a total of 60 units). I created a pericardial well. The aortic cannulation site was chosen where it was soft,
pliable, and free of calcium. Cannulation was performed with an arterial cannula in the ascending aorta and a triple-stage venous cannula through the right atrial appendage. The arterial cannula line had an appropriate bounce and correlating
pressures with test dosing. Next, a root vent/antegrade cannula was inserted into the ascending aorta. The ACT was confirmed to be over 400 and retrograde autologous priming was performed before commencing cardiopulmonary bypass. The pulmonary
artery was away from the aorta to facilitate a clamp site. The aortic cross-clamp was placed after decreasing the flow on the bypass and mean arterial pressure. A total of 1.2L initial dose of antegrade Del-Nido cardioplegia solution was
given and planned for re-dosing every 75 minutes as necessary. There was rapid electro-mechanical arrest of the heart at 600 cc of cardioplegia. The left ventricle was observed for distention on echocardiogram and manual palpation. Cold slush was
placed into a sponge and topically on the RV while we systemically cooled to 34 degrees centigrade. After the heart was fully arrested I medialized are not expose left atrial appendage. This was clipped with a 35mm clip flush the base
I positioned the heart to expose the left anterior descending artery. The mammary was then retrieved in the left hemithorax and a small pericardiotomy was created in order to facilitate its lie. A suitable target on the mid/distal left anterior
descending was identified. We dissected and prepared the distal target in a similar fashion. The distal end of the mammary was prepped and beveled to size. We verified orientation and length of the KRISTEN and found brisk flow. An end-to-side
anastomosis was created with a 7-0 prolene. We temporarily released the bulldog clamp on the mammary to inspect flow. Perfusion to the LAD territory was visualized and hemostasis was confirmed. The bull clamp was replaced on the mammary.
Carbon dioxide was used to flood the field. I turned my attention to the aortic valve and manually identified the location of the right coronary take off. An aortotomy was made approximately 1.5cm above the sinotubular junction. The location of both
left and right coronary vessels were visualized in the root. The aortic valve was inspected and found to be heavily calcified. The leaflets were excised and sent for pathological assessment. The annulus was debrided of any calcium. The root and left
ventricular outflow tract were thoroughly irrigated to remove any debris. A total of 15, non-pledgeted 2-0 ethibond annular sutures were placed [id number] circumferentially. These were brought through the sewing cuff of the prosthetic valve which
as then parachuted into place. The left and right coronary ostia were visualized and were unobstructed by the valve. A Cor-Knot device was used to secure the annular sutures. The valve was inspected and was well seated. The aortotomy was
approximated with 4-0 prolene in two layers. At the same time, we started to re-warm to 36.5 degrees centigrade. The bulldog clamp was removed from the mammary and temporary bipolar ventricular pacing wires were placed on the base of the right
ventricle. The patient was placed in a Trendelenburg position and flows on bypass were lowered. The aortic cross clamp was removed and flows were slowly brought back up. The aortotomy appeared hemostatic. All bypass grafts were inspected and were
free from kinking or twisting. De-airing maneuvers were performed. Transesophageal echocardiography revealed no paravalvular leak and appropriate prosthetic function. Once de-airing was satisfactory, the left ventricular and root vents were removed.
After verifying acceptable parameters, we initiated weaning from cardiopulmonary bypass. Once we were off cardiopulmonary bypass, the venous cannulas was clamped and removed. A test dose of protamine was administered and the patient was monitored
for any adverse reaction before resuming protamine. Once half of the protamine dose was delivered, pump suckers were turned off and the systolic blood pressure was lowered for aortic decannulation. The aortic cannula was removed and pursestrings
were tied down. All cannulation sites were oversewn with a 4-0 prolene. The aortic line, proximal, and distal coronary anastomoses were hemostatic. The mammary bed was inspected and hemostasis was confirmed. Once the mediastinum was hemostatic, a
19Fr Milton drain was placed in the left pleural cavity and two 24Fr Milton drains were placed within the pericardium. The sternum was approximated with 3 #7 single and 3 #8 double stainless steel wires. Additional plates were placed at the
manubrium, manubrial sternal junction, and the lower portion of the sternum. A total of 16 times 16 mm screws were used after measuring the depth of the sternal table. Fascia was approximated with #1 vicryl suture. The subcutaneous, dermis and
epidermis were closed in layers in a running fashion. The skin wound was cleansed and dressed.
All instrument, sponge, and needle counts were confirmed to be correct x 2 at the end of the operation. The patient was transferred to the cardiac intensive care unit in critical but stable condition.
I, Dr. Jaylen Barnes, was present, scrubbed for, and performed all critical elements of this procedure.
Jaylen Barnes MD, MS
Cardiothoracic Surgeon
[facility]
This operative dictation was created using the Tag'By dictation system. Please excuse any grammatical, typographical, or 'sound alike' errors
--- NOTE | 2024-07-14 17:00 | PTCARENOTE ---
Patient report via phone from cvor then from bedside VISUAL AND STOCK ASSOCIATE/Dr. Barnes/perfusion: usual lines. Chest tubes x 3 (2 meds and left pleural). No blood products. CABG x 1: AVR/.IAN exclusion and clip. Levo, nitro, insulin and precedex . ETT secured at 24cn
at lip: see flowrecord for vent settings. NSR with 1st degree avb and epicardial v wire temp for backup. Carter as per urology
[2024-07-14 17:13] LABS: Glucose - Point of Care 162 mg/dl (70-99)
[2024-07-14 17:15] LABS: B.E. -1.9 mmol/L; HCO3 24.3 mmol/L (21-28); Ionized Calcium 1.27 mMOL/L (1.15-1.33); O2 Saturation % 99.3 % (94-98); PCO2 46 mmHg (35-48); PO2 164 mmHg (83-108); Potassium 3.9 mMOL/L (3.5-5.1); Sodium 135 mMOL/L (136-145); pH 7.33 (7.35-7.45)
[2024-07-14 17:17] LABS: Mixed Venous O2 Saturation 72.3 %
[2024-07-14 17:24] LABS: Hematocrit 36.5 % (39.0-52.0); Platelet Count 145 10^3/uL (130-400)
[2024-07-14] MEDS: LACTATED RINGERS 250 ML IV (17:30)
[2024-07-14 17:35] LABS: INR 1.42; PT 17.2 Sec (11.4-14.6)
[2024-07-14 17:36] LABS: APTT 35.4 Sec (23.4-35.0)
[2024-07-14 17:38] LABS: Blood Urea Nitrogen 15 mg/dl (9-20); Estimated Creatinine Clearance 112 ml/min; Glucose 170 mg/dl (70-99); Magnesium 2.5 mg/dl (1.6-2.3)
[2024-07-14] MEDS: VANCOCIN 300 ML IV (17:48)
[2024-07-14] MEDS: VANCOCIN 300 MG IV (17:48)
[2024-07-14] MEDS: NOVOLOG FLEXPEN SC ×2 (17:50)
[2024-07-14] MEDS: NEURONTIN PO (17:50)
[2024-07-14] MEDS: NSS 500 IV (17:51)
[2024-07-14] MEDS: PACERONE PO ×2 (17:52→22:18)
[2024-07-14] MEDS: TYLENOL PO ×2 (17:52→22:19)
[2024-07-14] MEDS: KCL 50 IV ×2 (17:53→18:22)
--- NOTE | 2024-07-14 18:00 | PTCARENOTE ---
Waking up and bucking vent: RASS -3: followed simple commands and moving all extremeties x 4. CT surgery updated with hemodynamics.
[2024-07-14 18:06] LABS: Glucose - Point of Care 151 mg/dl (70-99)
[2024-07-14] MEDS: ANCEF 15 MG IV (18:23)
[2024-07-14 19:05] LABS: Glucose - Point of Care 153 mg/dl (70-99)
[2024-07-14] MEDS: OFIRMEV IV (19:15)
--- NOTE | 2024-07-14 19:29 | PTCARENOTE ---
Received pt from [facility]. Pt is sedated but responding to commands. Pupils equal and reactive to 1. Pt squeezes hands upon request, billateral strength equal on both sides, no neuro deficits noted. NSR on monitor, B/P 107/65, HR 85. V-wire to
backup of . R A-line zeroed and caibrated. R [place] @48. R I/J cordis intact, no redness or edema noted, pulses palpable, generalized edema. Cap refill <2 secs. Lungs clear, diminished in bases. E/T Size 8.0, 23@lip. L Pleural C/T and 2
Mediastinal C/t, all draining red fluid WNL. C/T dressing C/D/I. Sternal incision approx., surgical glue present. Hypoactive BS. Carter intact draining clear, yellow urine WNL. 20g R antecubital, no redness or edema noted. Pt is resting in bed. Will
continue to assess pt needs.
--- NOTE | 2024-07-14 19:40 | PTCARENOTE ---
VSS, Precedex on standyby, CPAP trial begun on pt. Will continue to assess pt needs.
[2024-07-14 20:14] LABS: Glucose - Point of Care 142 mg/dl (70-99)
[2024-07-14 20:18] LABS: B.E. -0.3 mmol/L; HCO3 24.1 mmol/L (21-28); Ionized Calcium 1.24 mMOL/L (1.15-1.33); O2 Saturation % 99.5 % (94-98); PCO2 38 mmHg (35-48); PO2 156 mmHg (83-108); Potassium 4.8 mMOL/L (3.5-5.1); pH 7.41 (7.35-7.45)
[2024-07-14] MEDS: SENOKOT-S PO (20:24)
[2024-07-14 20:27] LABS: Hematocrit 40.3 % (39.0-52.0); Hemoglobin 14.5 g/dL (13.0-18.0); Platelet Count 151 10^3/uL (130-400)
--- NOTE | 2024-07-14 20:40 | PTCARENOTE ---
VSS, pt extubated. Pt tolerated extubation. AAOX4. No neuro deficits noted. Pt placed on 6L NC.POX: 100%. Will continue to assess pt needs.
[2024-07-14] MEDS: OFIRMEV 100 IV (20:43)
[2024-07-14] MEDS: DILAUDID 0.25 MG IV (21:16)
[2024-07-14 21:26] LABS: Glucose - Point of Care 144 mg/dl (70-99)
[2024-07-14 21:27] VITALS: BP 99/63
[2024-07-14 22:00] VITALS: BP 114/65
[2024-07-14] MEDS: ANCEF 5 IV (22:17)
[2024-07-14] MEDS: VITAMIN D3 (cholecalciferol) 25 MCG PO (22:18)
[2024-07-14] MEDS: LOW STRENGTH ASPIRIN 81 MG PO (22:18)
[2024-07-14] MEDS: NEURONTIN 100 MG PO (22:18)
[2024-07-14 23:00] VITALS: BP 111/67
[2024-07-14 23:11] LABS: Glucose - Point of Care 131 mg/dl (70-99)
--- NOTE | 2024-07-14 23:19 | PTCARENOTE ---
VSS, NSR with 1st degree HB on monitor. Pt O2 decreased to 4L NC POX: 99%. Discussed pain mgnt with pt. Pt verbalized understanding. Encouraged I/S use. Oral care provided. Pt resting in bed. Will continue to monitor pt needs.
[2024-07-14] MEDS: NOVOLIN R INSULIN INFUSION 100 IV (23:29)
[2024-07-15] VITALS (26 sets, daily range): BP systolic 95–157; BP diastolic 51–80; PULSE 81–85; O2SAT 95–98; BMI 41.2
[2024-07-15] MEDS: DILAUDID 0.25 MG IV (00:13)
[2024-07-15] MEDS: VANCOCIN 200 IV ×2 (00:44→12:13)
[2024-07-15 01:10] LABS: Glucose - Point of Care 148 mg/dl (70-99)
[2024-07-15] MEDS: DILAUDID 0.5 MG IV ×2 (02:10→20:42)
[2024-07-15 02:21] LABS: Glucose - Point of Care 130 mg/dl (70-99)
[2024-07-15 03:23] LABS: Glucose - Point of Care 132 mg/dl (70-99)
[2024-07-15 04:02] LABS: Glucose - Point of Care 142 mg/dl (70-99)
[2024-07-15 04:10] LABS: Hematocrit 38.9 % (39.0-52.0); Hemoglobin 13.6 g/dL (13.0-18.0); Mean Corpuscular Hgb 32.9 pg (27.0-31.0); Mixed Venous O2 Saturation 69.3 %; Platelet Count 135 10^3/uL (130-400); Red Blood Cell Count 4.14 10^6/uL (4.70-6.10); White Blood Cell Count 15.1 10^3/uL (4.8-10.8)
--- NOTE | 2024-07-15 04:16 | W.PN.CT ---
Addendum entered and electronically signed by Ludin Norman MD 07/15/24 09:14:
I saw and examined the patient.
The PA's note was reviewed and I agree with the note.
Comment:
POD#1 s/p AVR/CABG x 1/ELAA
No major overnight events. De-lined. Saleh D/C'd - condom cath in place
- Maintain CTs
- Maintain cordis
- Urology for sphincter reactivation
- OOB/IS/ambulate
Original Note:
Today's Communication / Plan
-
Plan:
-No major issues overnight. Hemodynamically and neurologically intact
-Successfully extubated on 07/14/24 @ 2040
-Weaned of Levophed gtt overnight. Remains on insulin gtt per protocol
-CI 2.04, MVO2 69.3%, U/O since OR 660 mL
-D/C'd swan and a-line today @ 0500
-D/C'd saleh @ 0600, condom catheter placed, Urology to see regarding artificial urinary sphincter reactivation
-Will transfer to [facility] phase tomorrow once of insulin gtt
-Monitor chest tube drainage: 2meds 85/105, Lpl 160/200
-Cont. current meds (ASA, Amiodarone, Crestor; will switch Lopressor to Toprol XL)
-Holding Mag oxide, mg 2.6 today
-Maintain cordis
-Maintain temporary PW (will pull in 1-2 days)
-Wean off of O2 as tolerated
-Encourage use of IS
-OOB into chair/Ambulate
Assessment / Plan
-
Assessment:
-S/P Sternotomy with standard aortic and right atrial cannulation/CABG x 1 (In situ VÁZQUEZ to LAD)/Surgical aortic valve replacement [25 mm bioprosthesis]/Left atrial appendage exclusion [35 mm clip], by Dr. Barnes, 07/14/24, pod#1
-Severe aortic valve stenosis, symptomatic
-Single-vessel coronary disease involving the proximal LAD
-LVEF 55%, improved to 65% postop per intraop MACARIO
-Hypertension
-Hyperlipidemia
-Osteoarthritis
-Multiple orthopedic issues
-Morbidly obese with a BMI of 40.7
-Diabetes mellitus type 2 (hgb A1C 6.0, not on any meds, diet controlled)
-Obstructive sleep apnea on CPAP
-History of urinary incontinence s/p Artificial Urinary Sphincter placement by Dr Joshua Collado at [facility] during 2022
-Prostate cancer status post robotic assisted prostatectomy, 08/08/2018
Acute postop blood loss/Anemia (stable without blood transfusion)
-Acute postop atelectasis
-Acute postop hypovolemia with subsequent hypervolemia
Discussed patient care with: Cardiology, Nursing, Respiratory Therapy, Pharmacy and Care Team
Subjective
Procedure
-S/P Sternotomy with standard aortic and right atrial cannulation/CABG x 1 (In situ VÁZQUEZ to LAD)/Surgical aortic valve replacement [25 mm bioprosthesis]/Left atrial appendage exclusion [35 mm clip], by Dr. Barnes, 07/14/24
-
Date of Service: July 15, 2024
Pt c/o incisional pain, otherwise feels well
Objective Data
-
Lab Results
07/15/24 04:00
PT 17.2 Sec (11.4-14.6) H 07/14/24 17:02
INR 1.42 07/14/24 17:02
APTT 35.4 Sec (23.4-35.0) H 07/14/24 17:02
Vital Signs
Vital Signs
Temp Pulse Resp BP Pulse Ox
98.1 F 77 24 125/73 98
07/15/24 04:06 07/15/24 04:15 07/15/24 04:15 07/15/24 04:00 07/15/24 04:15
CT Intake/Output/Weight
07/14/24 07/14/24 07/15/24
06:59 18:59 06:59
Intake Total 381.0 / 1023.0 642.0 / 1023.0
Output Total 160 / 905 745 / 905
Balance 221.0 / 118.0 -103.0 / 118.0
SaO2: 98 (2L )
Physical Exam
-
General: Awake, Oriented and AOx3
Cardiovascular: Regular rate & rhythm, No Murmurs, No Rub and No Gallop
Respiratory: Decreased Breath Sounds (at bases, otherwise clear)
Sternum: Stable
Incision: Clean, Dry, Intact and Dressing Intact
Extremities: Other (+trace edema)
Data Reviewed
-
Lab Results: Results Reviewed
Medications: Active Meds Reviewed
Chest X-Ray: Report Reviewed and Image Reviewed
ECG: Report Reviewed and Image Reviewed
--- NOTE | 2024-07-15 04:31 | PTCARENOTE ---
VSS, Pt NSR with 1st degree HB on monitor. Pt c/o sternal incisional pain, CTPA Ed made aware. Continued ongoing pain mgnt throughout night, see NOV. Pt resting in bed. Will continue to assess pt needs.
[2024-07-15 04:34] LABS: Blood Urea Nitrogen 16 mg/dl (9-20); Carbon Dioxide 25 mmol/L (22-30); Chloride 105 mmol/L (98-107); Estimated Creatinine Clearance 112 ml/min; Glucose 149 mg/dl (70-99); Magnesium 2.6 mg/dl (1.6-2.3); Potassium 4.4 mmol/L (3.5-5.1); Sodium 140 mmol/L (135-145); eGFR > 60.00
[2024-07-15 05:12] LABS: Glucose - Point of Care 129 mg/dl (70-99)
[2024-07-15] MEDS: TYLENOL 1000 MG PO ×3 (06:14→22:27)
[2024-07-15] MEDS: ANCEF 5 IV ×2 (06:15→15:00)
--- NOTE | 2024-07-15 06:19 | PTCARENOTE ---
VSS. NSR with 1st degree HB on monitor. Pt delined, Carter removed, Wt and morning labs obtained. Pt OOB to chair X2. Pt resting in chair. Will continue to monitor Pt needs.
--- NOTE | 2024-07-15 07:20 | W.PN.UPDATE ---
Update Note
Progress Note Update
pt stable after cabg/avr
therese removed this am- condom cath in place
AUS on exam appears to remain in deactivated state
plan
leave deactivated today and condom cath- monitor UO
tomorrow- as pt has other tubes/etc discharged and able to stand- will try re-activation of AU so that pt may void independently
--- NOTE | 2024-07-15 07:26 | W.PN.CARDCBS ---
Addendum entered and electronically signed by Mau Gaitan MD 07/15/24 13:08:
Some chest discomfort with deep breaths.
LUNGS: Decreased BS B/L bases (poor insp effort), no wheezes
CV: Reg, S1/S2, 1/6 AHSM, no rubs
ABD: soft, BS+, NT/ND
EXT: No cyanosis, clubbing. Trace edema of B/L LE
NEURO: Gross non-focal
SKIN: Warm, pink, dry. No rash. Sternotomy c/d/i. CTs in place
Assessment:
S/P CABG x 1 (In situ VÁZQUEZ to LAD), Bioprosthetic AVR, IAN clip 07/14/24, Dr. Barnes
Severe
Prox LAD stenosis by cath
HTN
HLD
DM2
Obesity
REY
OA
History of urinary incontinence s/p Artificial Urinary Sphincter placement by Dr Joshua Collado at [facility] 2022
Prostate cancer s/p robotic assisted prostatectomy 07/2018
ECHO 03/13/24: Normal LVEF without regional wall motion abnormalities, severe
Plan:
S/P CABG x 1 (In situ VÁZQUEZ to LAD), Bioprosthetic AVR, IAN clip 07/14/24, Dr. Barnes
Overall doing well. He was successfully extubated and is off of pressors.
He is maintaining sinus rhythm
Continue amiodarone and beta-vu
Continue statin
Original Note:
Today's Communication / Plan
-
continue post op care
in SR
Impression / Plan
-
Primary Development Advisor: Dr. Arce
Assessment:
S/P CABG x 1 (In situ VÁZQUEZ to LAD), Bioprosthetic AVR, IAN clip 07/14/24, Dr. Barnes
Severe
Prox LAD stenosis by cath
HTN
HLD
DM2
Obesity
REY
OA
History of urinary incontinence s/p Artificial Urinary Sphincter placement by Dr Joshua Collado at [facility] 2022
Prostate cancer s/p robotic assisted prostatectomy 07/2018
ECHO 03/13/24: Normal LVEF without regional wall motion abnormalities, severe
Plan:
-S/P CABG x 1 (In situ VÁZQUEZ to LAD), Bioprosthetic AVR, IAN clip 07/14/24, Dr. Barnes
-doing well
-extubated overnight
-off pressors
-wean supp O2
-EKG appears stable compared to preop. in SR on tele with 1 5-beat run of NSVT. continue amiodarone, toprol
-hgb 13.6. continue asa
-continue crestor
-OOB/IS as able
-d/w nursing
Progress Note - Development Advisor
Subjective
Date of Service: July 15, 2024
Reports feeling relatively well overnight. Reports did have some pleuritic discomfort with trying to take a deep breath
Objective
Labs:
07/15/24 04:00
07/15/24 04:00
Labs
Hgb 13.6 g/dL (13.0-18.0) 07/15/24 04:00
Hct 38.9 % (39.0-52.0) L 07/15/24 04:00
Plt Count 135 10^3/uL (130-400) 07/15/24 04:00
PT 17.2 Sec (11.4-14.6) H 07/14/24 17:02
INR 1.42 07/14/24 17:02
APTT 35.4 Sec (23.4-35.0) H 07/14/24 17:02
Sodium 140 mmol/L (135-145) 07/15/24 04:00
Potassium 4.4 mmol/L (3.5-5.1) 07/15/24 04:00
BUN 16 mg/dl (9-20) 07/15/24 04:00
Creatinine 0.8 mg/dL (0.7-1.3) 07/15/24 04:00
Glucose 149 mg/dl (70-99) H 07/15/24 04:00
Vital Signs and I&O:
Vital Signs
Temp Pulse Resp BP Pulse Ox
98.4 F 78 20 117/64 93
07/15/24 06:04 07/15/24 06:00 07/15/24 06:04 07/15/24 06:00 07/15/24 06:04
Vital Signs
Temp Pulse Resp BP Pulse Ox
98.4 F 78 20 117/64 93
07/15/24 06:04 07/15/24 06:00 07/15/24 06:04 07/15/24 06:00 07/15/24 06:04
Intake & Output
07/12/24 07/13/24 07/14/24 07/15/24
07:59 07:59 07:59 07:59
Intake Total 1071.5 / 1071.5
Output Total 1045 / 1045
Balance 26.5 / 26.5
Physical Exam
Physical Exam
GEN: No distress, awake, alert, oriented x3. sitting in chair. obese. on supp o2
HEENT: supple, anicteric, mmm, eomi
LUNGS: Decreased BS B/L bases, no wheezes
CV: Reg, S1/S2, no murmur
ABD: soft, BS+, NT/ND
EXT: No cyanosis, clubbing. Trace edema of B/L LE
NEURO: Gross non-focal
SKIN: Warm, pink, dry. No rash. Sternotomy c/d/i. CTs in place
--- NOTE | 2024-07-15 08:07 | W.PN.ANS.POP ---
Anesthesia Post Operative
- Anesthesia Post Op Note
Vital Signs Stable-See Nursing Note: Yes
Airway Patent: Yes
Adequate Pain Control: Yes
Change in Mental Status: No
Current Postoperative Nausea & Vomiting: No
Anesthesia Complications: No
General Anesthetic Recall: No
Unplanned Admission: No
Post Op Hydration Adequate: Yes
--- NOTE | 2024-07-15 08:31 | W.PN.INTV ---
Today's Communication / Plan
Recommendations
Up OOB as tolerated
Pain control
CPAP with sleep
Goal BG 140�180, with plans to stop insulin drip today; once off drip then would continue with ISS SQ
Goal SpO2 >90-94%
Patient will be taken off the insulin drip later this afternoon and then downgraded to CVICU�telemetry status. Supercalender Operator/Pulmonary service will now sign off. Please reconsult if there are any additional questions/concerns, or if patient's
respiratory status deteriorates.
Assessment
-
Assessment: 68-year-old morbidly obese male non-smoker with a past medical history of CAD involving ostial�mid LAD, severe aortic stenosis, history of colon polyps, prostate cancer s/p robotic prostatectomy complicated by urinary incontinence,
history of varicella, REY on CPAP, seasonal allergies and DM type II who presents with elective SAVR + CABG x 1. He is known to the cardiothoracic service with last visit on 06/15/[address] Barnes. He has a history of significant one-vessel
disease involving his ostial LAD and mid LAD. He also has severe aortic stenosis. Cardiothoracic operative intervention was discussed with CABG + aortic valve replacement. Risks and benefits were reviewed in detail and he opted for SAVR + CABG x1
with IAN-exclusion which he received today. Procedure went well with no immediate complications and he was transferred to the CVICU postoperatively, and health practice manager services consulted for additional management/recommendations.
Chronic conditions VINYL CUTTER: History of colonic polyps, hypercholesterolemia, lumbar spinal osteoarthritis without myelopathy, REY on CPAP, bilateral hand osteoarthritis, history of varicella, seasonal allergies, prostate cancer s/p robotic
prostatectomy, DM type II with proteinuria, morbid obesity, hypertension, urinary incontinence s/p prostatectomy, CAD involving LAD, aortic stenosis
Impression:
#Severe aortic valve stenosis s/p surgical aortic valve replacement with 25 mm bioprosthesis (POD #1)
#CAD involving the proximal LAD s/p CABG x 1 with left atrial appendage exclusion with 35mm clip (POD #1)
#Thrombocytopenia (mild)
#DM type II c/b hyperglycemia (mild)
#History of hypertension
#History of hyperlipidemia
#REY on CPAP
#History of prostate cancer s/p prostatectomy
Plan:
Patient successfully extubated on 07/14/2024 to nasal cannula, and is currently on room air breathing comfortably
Maintain SpO2 >90-94%
Continue with CPAP with sleep
prn nebulized bronchodilators
Encourage incentive spirometer use
Maintain MAP>65
Replete electrolytes with K>4, Mg>2
Monitor chest tube output (mediastinal chest tubes x 2+ left pleural chest tube x 1)
Monitor hemoglobin
Monitor platelet count and coags
Transfuse blood products as needed to maintain Hb>7g/dL, plt>50k (given post-operative status)
CT surgery managing chest tubes
Monitor blood sugar to maintain euglycemia with goal BG 140-180
Insulin drip per protocol --> planned to be stopped today
Aspiration precautions
DVT prophylaxis
Early nutrition
Early mobilization
Patient will be taken off the insulin drip later this afternoon and then downgraded to CVICU�telemetry status. Supercalender Operator/Pulmonary service will now sign off. Thank you for allowing us to be involved in the care of this patient. Please reconsult
if there are any additional questions/concerns, or if patient's respiratory status deteriorates.
Total time spent today was 56 minutes for this encounter. Time includes reviewing laboratory test/imaging results, reviewing pertinent medical records, obtaining and reviewing medical history, performing an appropriate exam, ordering medications,
tests and procedures. Time also includes documentation of this encounter, coordinating patient care and communicating with other healthcare professionals. Total time does not include separately billed tests performed on this date of service.
Subjective Dataa
Subjective Data
Date of Service:
Date of Service: July 15, 2024
Chief Complaint: Supercalender Operator Follow Up
Subjective:
Patient seen and evaluated today at bedside. Currently on insulin drip at 8 units/hr. Heart rate 76 and BP 126/72. Saturating 96% on room air. Mediastinal chest tubes x2 + left pleural chest tube in place. Patient's son, Goran, and
[id number], Ken, both at bedside and all questions were answered. Patient is using incentive spirometer pulling about 1-1.5 L. He has some postoperative chest pain but otherwise denies JAIME, SOB, abdominal pain, nausea, fevers or chills.
Review of Systems
General: Other (Negative unless mentioned above)
Objective Data
Data Reviewed
Vital Signs / I&O / Oxygen:
Vital Signs
Temp Pulse Resp BP Pulse Ox
98.2 F 79 16 120/67 99
07/15/24 08:00 07/15/24 09:00 07/15/24 08:00 07/15/24 09:00 07/15/24 08:00
Intake and Output
07/14/24 07/15/24 07/16/24
06:59 06:59 06:59
Intake Total 1071.5 / 1071.5 114 / 114
Output Total 1045 / 1045
Balance 26.5 / 26.5 104 / 104
SaO2 [SIMV] 98
SaO2 99
Nasal Cannula flow liters per 2
minute
Physical Exam
General: Respiratory Distress (negative) and Comfortable
HEENT: Normocephalic, Anicteric and Moist Mucous Membranes
Cardiovascular: S1-S2 and Peripheral Edema (negative)
Respiratory: Wheeze (negative), Crackles (negative), Rhonchi (negative), Non-Labored Respirations and Chest Tube (mediastinal chest tubes x2 + left pleural chest tube)
GI: Soft, Distended (Abdominal obesity), Non Tender and Normal Bowel Sounds
Neurology: AO x 3 and Tremors (negative)
Skin: Warm, Dry, Cyanosis (negative) and Jaundice (negative)
Labs/Micro/Reports
Lab Data
07/15/24 04:00
07/15/24 04:00
Laboratory Results
07/14/24 07/14/24
17:02 20:12
PT 17.2 H
INR 1.42
APTT 35.4 H
pH 7.33 L 7.41
pCO2 46 38
pO2 164 H 156 H
HCO3 24.3 24.1
O2 Delivery Level
[2024-07-15] MEDS: CRESTOR 40 MG PO (08:41)
[2024-07-15] MEDS: VITAMIN C 500 MG PO (08:41)
[2024-07-15] MEDS: LOW STRENGTH ASPIRIN 81 MG PO (08:41)
[2024-07-15] MEDS: ROXICODONE 5 MG PO ×3 (08:41→17:56)
[2024-07-15] MEDS: TOPROL XL 12.5 MG PO ×2 (08:41→20:41)
[2024-07-15] MEDS: NEURONTIN 100 MG PO ×3 (08:41→22:28)
[2024-07-15] MEDS: PROTONIX 40 MG PO (08:41)
[2024-07-15] MEDS: SENOKOT-S 1 TABLET PO (08:42)
[2024-07-15] MEDS: PACERONE 200 MG PO ×3 (08:42→22:28)
[2024-07-15] MEDS: BACTROBAN 2% OINTMENT 1 APPLIC NASAL ×2 (08:42→20:43)
[2024-07-15] MEDS: NOVOLOG FLEXPEN 4 UNITS SC ×2 (08:42→16:55)
[2024-07-15] MEDS: LIDOCAINE 4% PATCH 1 PATCH TOPICAL (08:42)
--- NOTE | 2024-07-15 09:30 | PTCARENOTE ---
assumed care of pt from previous shift RN, sinus rhythm on tele, BP 128/62, + peripheral pulses, +1 edema to bilateral lower extremities. Lungs diminished, pox 99% on 2L. +BS, tolerating PO intake, incont urine. Post op incisions stable, PIV and
cordis flush easily. Pt medicated for pain. Plan of care reviewed and questions encouraged.
[2024-07-15 09:45] LABS: Glucose - Point of Care 177 mg/dl (70-99)
[2024-07-15 11:11] LABS: Glucose - Point of Care 161 mg/dl (70-99)
[2024-07-15 12:17] LABS: Glucose - Point of Care 154 mg/dl (70-99)
--- NOTE | 2024-07-15 12:40 | PTCARENOTE ---
pt sitting OOB in chair, VSS, minimal output from CTs, pain well controlled.
[2024-07-15] MEDS: NOVOLOG FLEXPEN SC (13:39)
[2024-07-15 13:43] LABS: Glucose - Point of Care 130 mg/dl (70-99)
[2024-07-15] MEDS: FERRLECIT 110 MG IV (15:01)
[2024-07-15 15:04] LABS: Glucose - Point of Care 131 mg/dl (70-99)
--- NOTE | 2024-07-15 15:59 | PTCARENOTE ---
VSS, pain well controlled, minimal output from CTs
[2024-07-15 16:54] LABS: Glucose - Point of Care 90 mg/dl (70-99)
[2024-07-15] MEDS: NSS IV (16:54)
--- NOTE | 2024-07-15 18:36 | RESPNOTE ---
visited patient approx [phone] regarding new order for HS cpap. patient agreeable in using hospital cpap unit tonight with nasal mask.
--- NOTE | 2024-07-15 20:00 | PTCARENOTE ---
Bedside walking rounds report received. Patient seen on rounds resting oob in chair. Neuro intact. NSR with PAC on monitor. See flowrecord for pain management documentation. Vitals stable. Room air when oob in chair then cpap mask at HS once back
in the bed for sleep. Chest tubes x 3 (2 meds and 1 left pleural) to -20cm wall suction. No 'dumping' with standing
[2024-07-15] MEDS: SENOKOT-S PO (20:42)
[2024-07-15] MEDS: VITAMIN D3 (cholecalciferol) 25 MCG PO (22:28)
[2024-07-15] MEDS: MUCINEX 600 MG PO (22:28)
[2024-07-16] VITALS (21 sets, daily range): BP systolic 99–150; BP diastolic 44–74; PULSE 73–82; BMI 41.5
--- NOTE | 2024-07-16 | PTCARENOTE ---
No acute changes. Vitals stable. Patient seen on rounds resting in bed: cpap mask. Continuous pulse ox monitoring for the night
[2024-07-16] MEDS: DILAUDID 0.5 MG IV (03:41)
--- NOTE | 2024-07-16 04:23 | W.PN.CT ---
Addendum entered and electronically signed by Ludin Norman MD 07/16/24 09:20:
I saw and examined the patient.
The PA's note was reviewed and I agree with the note.
Comment:
POD#2 s/p AVR/CABG x 1/ELAA
No major overnight events. Urology reactivated sphincter this AM
- D/C pacing wire
- D/C CTs
- Maintain cordis
- OOB/IS/ambulate
Original Note:
Today's Communication / Plan
-
Plan:
-No major issues overnight. Hemodynamically and neurologically intact
-Off all drips
-Urology to reactivate artificial urinary sphincter today. C/O urinary incontinence when condom catheter accidentally removed
-Pull temporary PW
-Consider D/C of chest tubes: 2meds 95/215, Lpl 55/165
-Cont. current meds (ASA, Amiodarone, Crestor, Toprol XL)
-Gentle diuresis today
-Maintain cordis another day
-Encourage use of IS
-OOB into chair/Ambulate
Assessment / Plan
-
Assessment:
-S/P Sternotomy with standard aortic and right atrial cannulation/CABG x 1 (In situ VÁZQUEZ to LAD)/Surgical aortic valve replacement [25 mm bioprosthesis]/Left atrial appendage exclusion [35 mm clip], by Dr. Barnes, 07/14/24, pod#2
-Severe aortic valve stenosis, symptomatic
-Single-vessel coronary disease involving the proximal LAD
-LVEF 55%, improved to 65% postop per intraop MACARIO
-Hypertension
-Hyperlipidemia
-Osteoarthritis
-Multiple orthopedic issues
-Morbidly obese with a BMI of 40.7
-Diabetes mellitus type 2 (hgb A1C 6.0, not on any meds, diet controlled)
-Obstructive sleep apnea on CPAP
-History of urinary incontinence s/p Artificial Urinary Sphincter placement by Dr Joshua Collado at [facility] during 2022
-Prostate cancer status post robotic assisted prostatectomy, 08/08/2018
Acute postop blood loss/Anemia (stable without blood transfusion)
-Acute postop atelectasis
-Acute postop hypovolemia with subsequent hypervolemia
Discussed patient care with: Cardiology, Nursing, Respiratory Therapy, Pharmacy and Care Team
Subjective
Procedure
S/P Sternotomy with standard aortic and right atrial cannulation/CABG x 1 (In situ VÁZQUEZ to LAD)/Surgical aortic valve replacement [25 mm bioprosthesis]/Left atrial appendage exclusion [35 mm clip], by Dr. Barnes, 07/14/24
-
Date of Service: July 16, 2024
Pt c/o mild incisional pain and some urinary incontinence, otherwise feels well
Objective Data
-
PT 17.2 Sec (11.4-14.6) H 07/14/24 17:02
INR 1.42 07/14/24 17:02
APTT 35.4 Sec (23.4-35.0) H 07/14/24 17:02
Vital Signs
Vital Signs
Temp Pulse Resp BP Pulse Ox
99.2 F 76 22 136/62 93
07/16/24 03:48 07/16/24 03:48 07/16/24 03:48 07/16/24 03:00 07/16/24 01:00
CT Intake/Output/Weight
07/15/24 07/15/24 07/16/24
06:59 18:59 06:59
Intake Total 690.5 / 1071.5 274 / 624 350 / 624
Output Total 885 / 1045 230 / 380 150 / 380
Balance -194.5 / 26.5 44 / 244 200 / 244
SaO2: 93 (RA)
Physical Exam
-
General: Awake, Oriented and AOx3
Cardiovascular: Regular rate & rhythm, No Murmurs and No Gallop
Respiratory: Decreased Breath Sounds (at bases, otherwise clear)
Sternum: Stable
Incision: Clean, Dry, Intact and Dressing Intact
Extremities: Other (+trace edema)
Data Reviewed
-
Lab Results: Results Reviewed
Medications: Active Meds Reviewed
Chest X-Ray: Report Reviewed and Image Reviewed
ECG: Report Reviewed and Image Reviewed
[2024-07-16 04:38] LABS: Hematocrit 37.4 % (39.0-52.0); Hemoglobin 12.9 g/dL (13.0-18.0); Mean Corp Hgb Conc. 34.5 g/dL (33.0-37.0); Mean Corpuscular Hgb 33.1 pg (27.0-31.0); Mean Corpuscular Volume 95.9 fL (80.0-94.0); Mean Platelet Volume 10.2 fL (7.4-10.4); Platelet Count 110 10^3/uL (130-400); Red Cell Dist. Width 13.3 % (11.5-14.5); White Blood Cell Count 16.8 10^3/uL (4.8-10.8)
[2024-07-16 04:44] LABS: Blood Urea Nitrogen 17 mg/dl (9-20); Calcium 8.6 mg/dl (8.4-10.2); Carbon Dioxide 26 mmol/L (22-30); Chloride 101 mmol/L (98-107); Estimated Creatinine Clearance 101 ml/min; Glucose 150 mg/dl (70-99); Magnesium 2.2 mg/dl (1.6-2.3); Potassium 4.4 mmol/L (3.5-5.1); Sodium 138 mmol/L (135-145); eGFR > 60.00
[2024-07-16] MEDS: TYLENOL 1000 MG PO ×3 (06:44→22:23)
[2024-07-16 07:55] LABS: Glucose - Point of Care 164 mg/dl (70-99)
[2024-07-16] MEDS: PACERONE 200 MG PO ×3 (08:04→22:23)
[2024-07-16] MEDS: LOW STRENGTH ASPIRIN 81 MG PO (08:04)
[2024-07-16] MEDS: VITAMIN C 500 MG PO (08:04)
[2024-07-16] MEDS: ROXICODONE 5 MG PO ×2 (08:04→16:32)
[2024-07-16] MEDS: NEURONTIN 100 MG PO ×3 (08:05→22:23)
[2024-07-16] MEDS: MUCINEX 600 MG PO ×2 (08:05→22:02)
[2024-07-16] MEDS: BACTROBAN 2% OINTMENT 1 APPLIC NASAL ×2 (08:05→22:01)
[2024-07-16] MEDS: MAGNESIUM OXIDE 500 MG PO ×2 (08:05→22:02)
[2024-07-16] MEDS: TOPROL XL 12.5 MG PO ×2 (08:05→23:17)
[2024-07-16] MEDS: LIDOCAINE 4% PATCH 1 PATCH TOPICAL (08:05)
[2024-07-16] MEDS: CRESTOR 40 MG PO (08:05)
[2024-07-16] MEDS: PROTONIX 40 MG PO (08:05)
[2024-07-16] MEDS: SENOKOT-S PO ×2 (08:06→22:02)
--- NOTE | 2024-07-16 08:37 | W.PN.UPDATE ---
Update Note
Progress Note Update
pt largely incontinent of urine yesterday
no sense of bladder fullness or retention
feels he is able to stand to void and will be able to work his AUS
AUS reactivated
will observe
--- NOTE | 2024-07-16 09:06 | PTCARENOTE ---
assumed care of pt from previous shift RN, sinus rhythm on tele, VSS, +peripheral pulses, no edema noted. Pacing wire removed by CT QUYNH. Lungs CTA, pox 94-96% on RA. +bs, tolerating PO intake, incont urine. Urology in to evaluate pt this am,
artificial urinary sphincter reactivate. Minimal drainage from CTs, surgical sites stable. Right IJ cordis w KVO infusing, right AC PIV redressed, flushes easily. Pt medicated for pain. Plan of care reviewed w the pt and questions encouraged.
[2024-07-16] MEDS: NOVOLOG FLEXPEN SC (09:21)
--- NOTE | 2024-07-16 10:29 | PTCARENOTE ---
CTs removed as ordered. Pt tolerated well.
[2024-07-16] MEDS: LASIX 40 MG PO (12:06)
[2024-07-16] MEDS: ZESTRIL 5 MG PO (12:06)
[2024-07-16] MEDS: KCL 20 MEQ PO (12:06)
--- NOTE | 2024-07-16 12:24 | PTCARENOTE ---
VSS, sinus rhythm maintained on tele, pt assisted OOB to chair without difficultly. Pain is well controlled.
[2024-07-16 13:13] LABS: Glucose - Point of Care 144 mg/dl (70-99)
[2024-07-16] MEDS: NOVOLOG FLEXPEN-MODERATE RESISTANCE SC (13:13)
[2024-07-16] MEDS: FERRLECIT 110 MG IV (14:34)
[2024-07-16] MEDS: NSS IV (16:07)
[2024-07-16] MEDS: ZOFRAN 4 MG IV (18:03)
[2024-07-16 18:06] LABS: Glucose - Point of Care 167 mg/dl (70-99)
[2024-07-16] MEDS: NOVOLOG FLEXPEN-MODERATE RESISTANCE 1 UNITS SC (18:06)
--- NOTE | 2024-07-16 21:00 | PTCARENOTE ---
Report received from DOUGLAS De Dios. Walking rounds done. Pt awake, alert, oriented x 4. Sitting in recliner chair. On room air. Sats 94%. BBS present. Decreased to B bases. CDB and IS encouraged. IS peak 1000 mls. Softer BP 109/44. Pt with audible heart
tones. No c/o lightheadedness or dizziness. PA notified of BP. Pt had received Lisinopril 5 mg today and Lasix 40 mg po. Pt in SR with 1st degree AVB. For pulse and wound assessments, see flowsheets. Belly round, obese, nontender. Normoactive bs x
4. Passing flatus. Helped to BR. Had small, loose BM, passing increased flatus. Pt voided in toilet, clear, yellow urine. Pt helped back to recliner chair. Ongoing plan of care.
[2024-07-16] MEDS: VITAMIN D3 (cholecalciferol) 25 MCG PO (22:03)
[2024-07-16 22:30] LABS: Glucose - Point of Care 153 mg/dl (70-99)
--- NOTE | 2024-07-16 23:30 | PTCARENOTE ---
Pt helped back to bed with 2 RNs. VS done. See flowsheet. CPAP placed onto pt via Respiratory therapy. Sats 97% while on CPAP. Pt remains in SR with 1st degree AVB. BP 111/47. Toprol given as ordered along with other scheduled medications. Evening
blood glucose completed. Pt given CHG bath. Gown and linens changed. Pt going to sleep. Ongoing plan of care.
[2024-07-17] VITALS (18 sets, daily range): BP systolic 96–149; BP diastolic 42–69; PULSE 78–80; O2SAT 98; BMI 41.6
--- NOTE | 2024-07-17 03:30 | PTCARENOTE ---
Labs drawn and sent. VS recorded. See flowsheet. Pt awakened briefly, continues sleeping.
[2024-07-17 04:28] LABS: Hematocrit 33.6 % (39.0-52.0); Hemoglobin 11.7 g/dL (13.0-18.0); Mean Corp Hgb Conc. 34.8 g/dL (33.0-37.0); Mean Corpuscular Hgb 33.2 pg (27.0-31.0); Mean Corpuscular Volume 95.5 fL (80.0-94.0); Mean Platelet Volume 10.3 fL (7.4-10.4); Platelet Count 104 10^3/uL (130-400); Red Blood Cell Count 3.52 10^6/uL (4.70-6.10); Red Cell Dist. Width 13.4 % (11.5-14.5); White Blood Cell Count 16.5 10^3/uL (4.8-10.8)
[2024-07-17 04:52] LABS: Blood Urea Nitrogen 27 mg/dl (9-20); Calcium 8.5 mg/dl (8.4-10.2); Carbon Dioxide 27 mmol/L (22-30); Chloride 100 mmol/L (98-107); Estimated Creatinine Clearance 76 ml/min; Glucose 132 mg/dl (70-99); Magnesium 2.4 mg/dl (1.6-2.3); Potassium 4.1 mmol/L (3.5-5.1); Sodium 136 mmol/L (135-145); eGFR > 60.00
--- NOTE | 2024-07-17 05:03 | W.PN.CT ---
Today's Communication / Plan
-
Plan:
-No major issues overnight. Hemodynamically and neurologically intact
-BP has been soft postop, improved but dropped again with addition of Lisinopril, currently placed on hold. Will increase Toprol XL if BP on the higher side moving forward or lower dose of Lisinopril
-Urology reactivated his artificial urinary sphincter yesterday 07/16, currently without issues
-D/C cordis
-Cont. current meds (ASA, Amiodarone, Crestor, Toprol XL)
-C/O loose stools [id number], Senokot and Mag oxide placed on hold
-Gentle diuresis today
-Encourage use of IS
-OOB into chair/Ambulate
-Likely D/C home tomorrow
Assessment / Plan
-
Assessment:
-S/P Sternotomy with standard aortic and right atrial cannulation/CABG x 1 (In situ VÁZQUEZ to LAD)/Surgical aortic valve replacement [25 mm bioprosthesis]/Left atrial appendage exclusion [35 mm clip], by Dr. Barnes, 07/14/24, pod#3
-Severe aortic valve stenosis, symptomatic
-Single-vessel coronary disease involving the proximal LAD
-LVEF 55%, improved to 65% postop per intraop MACARIO
-Hypertension
-Hyperlipidemia
-Osteoarthritis
-Multiple orthopedic issues
-Morbidly obese with a BMI of 40.7
-Diabetes mellitus type 2 (hgb A1C 6.0, not on any meds, diet controlled)
-Obstructive sleep apnea on CPAP
-History of urinary incontinence s/p Artificial Urinary Sphincter placement by Dr Joshua Collado at [facility] during 2022
-Prostate cancer status post robotic assisted prostatectomy, 08/08/2018
Acute postop blood loss/Anemia (stable without blood transfusion)
-Acute postop atelectasis
-Acute postop hypovolemia with subsequent hypervolemia
Discussed patient care with: Cardiology, Nursing, Respiratory Therapy, Pharmacy and Care Team
Subjective
Procedure
S/P Sternotomy with standard aortic and right atrial cannulation/CABG x 1 (In situ VÁZQUEZ to LAD)/Surgical aortic valve replacement [25 mm bioprosthesis]/Left atrial appendage exclusion [35 mm clip], by Dr. Barnes, 07/14/24
-
Date of Service: July 17, 2024
Pt c/o mild incisional pain, and loose stools yesterday, otherwise feels well. Ambulating halls without difficulty
Objective Data
-
Lab Results
07/17/24 04:18
07/17/24 04:18
PT 17.2 Sec (11.4-14.6) H 07/14/24 17:02
INR 1.42 07/14/24 17:02
APTT 35.4 Sec (23.4-35.0) H 07/14/24 17:02
Vital Signs
Vital Signs
Temp Pulse Resp BP Pulse Ox
98.9 F 65 16 123/61 97
07/17/24 03:39 07/17/24 03:39 07/17/24 03:39 07/17/24 03:39 07/17/24 03:39
CT Intake/Output/Weight
07/16/24 07/16/24 07/17/24
06:59 18:59 06:59
Intake Total 470 / 744 130 / 170 40 / 170
Output Total 185 / 415
Balance 285 / 329 130 / 170 40 / 170
SaO2: 97 (RA)
Physical Exam
-
General: Awake, Oriented and AOx3
Cardiovascular: Regular rate & rhythm, No Murmurs, No Rub and No Gallop
Respiratory: Decreased Breath Sounds (at bases, otherwise clear)
Incision: Clean, Dry, Intact and Dressing Intact
Extremities: Other (+trace edema)
Data Reviewed
-
Lab Results: Results Reviewed
Medications: Active Meds Reviewed
Chest X-Ray: Report Reviewed and Image Reviewed
ECG: Report Reviewed and Image Reviewed
[2024-07-17] MEDS: TYLENOL 1000 MG PO ×3 (06:26→22:38)
[2024-07-17] MEDS: FLEXERIL 5 MG PO (06:46)
--- NOTE | 2024-07-17 06:59 | W.PN.UPDATE ---
Update Note
Progress Note Update
pt doing well
using AUS- no leak- voiding
pt should f/u with established outpt urologist
call with any further ?'s
--- NOTE | 2024-07-17 07:10 | PTCARENOTE ---
Pt helped up to BR to void clear, yellow urine. Pt then weighed and helped to recliner chair. C/O B shoulder stiffness. Flexeril 5 mg po given. Scheduled Tylenol also given. Report to DOUGLSA De Dios. Walking rounds done.
[2024-07-17 07:33] LABS: Glucose - Point of Care 152 mg/dl (70-99)
[2024-07-17] MEDS: NOVOLOG FLEXPEN-MODERATE RESISTANCE 1 UNITS SC ×2 (07:33→18:24)
[2024-07-17] MEDS: MUCINEX 600 MG PO ×2 (08:25→19:35)
[2024-07-17] MEDS: PACERONE 200 MG PO ×3 (08:25→22:39)
[2024-07-17] MEDS: LIDOCAINE 4% PATCH 1 PATCH TOPICAL (08:25)
[2024-07-17] MEDS: NEURONTIN 100 MG PO ×3 (08:26→22:38)
[2024-07-17] MEDS: LOW STRENGTH ASPIRIN 81 MG PO (08:26)
[2024-07-17] MEDS: PROTONIX 40 MG PO (08:26)
[2024-07-17] MEDS: VITAMIN C 500 MG PO (08:26)
[2024-07-17] MEDS: SENOKOT-S PO ×2 (08:26→20:12)
[2024-07-17] MEDS: CRESTOR 40 MG PO (08:26)
[2024-07-17] MEDS: BACTROBAN 2% OINTMENT 1 APPLIC NASAL ×2 (08:26→19:36)
[2024-07-17] MEDS: TOPROL XL 12.5 MG PO ×2 (08:30→21:09)
--- NOTE | 2024-07-17 08:42 | PTCARENOTE ---
assumed care of pt from previous shift RN, sinus rhythm on tele, BP 97/42, HR 70's, + peripheral pulses, trace edema noted. Lungs diminished, pox 94-95% on RA. Coughing and deep breathing encouraged. +bs, tolerating PO intake, voids spontaneously.
Right IJ cordis w KVO infusing, right ac PIV flushes easily. plan of care reviewed w the pt and questions encouraged.
[2024-07-17] MEDS: LASIX 20 MG IV ×2 (10:22→12:20)
--- NOTE | 2024-07-17 10:43 | W.PN.CARDCBS ---
Today's Communication / Plan
-
Stable cardiology status
Impression / Plan
-
Primary Manager Fixed Income: Dr. Arce
Assessment:
S/P CABG x 1 (In situ VÁZQUEZ to LAD), Bioprosthetic AVR, IAN clip 07/14/24, Dr. Barnes
Severe
Prox LAD stenosis by cath
HTN
HLD
DM2
Obesity
REY
OA
History of urinary incontinence s/p Artificial Urinary Sphincter placement by Dr Joshua Collado at [facility] 2022
Prostate cancer s/p robotic assisted prostatectomy 07/2018
ECHO 03/13/24: Normal LVEF without regional wall motion abnormalities, severe
Plan:
Stable cardiology status
Remains in sinus rhythm
Discussed with CT surgery PA
Progress Note - Manager Fixed Income
Subjective
Date of Service: July 17, 2024
No complaints
Objective
Labs:
07/17/24 04:18
07/17/24 04:18
Labs
Hgb 11.7 g/dL (13.0-18.0) L 07/17/24 04:18
Hct 33.6 % (39.0-52.0) L 07/17/24 04:18
Plt Count 104 10^3/uL (130-400) L 07/17/24 04:18
PT 17.2 Sec (11.4-14.6) H 07/14/24 17:02
INR 1.42 07/14/24 17:02
APTT 35.4 Sec (23.4-35.0) H 07/14/24 17:02
Sodium 136 mmol/L (135-145) 07/17/24 04:18
Potassium 4.1 mmol/L (3.5-5.1) 07/17/24 04:18
BUN 27 mg/dl (9-20) H 07/17/24 04:18
Creatinine 1.2 mg/dL (0.7-1.3) 07/17/24 04:18
Glucose 132 mg/dl (70-99) H 07/17/24 04:18
Vital Signs and I&O:
Vital Signs
Temp Pulse Resp BP Pulse Ox
98.2 F 77 12 112/55 94
07/17/24 08:24 07/17/24 10:00 07/17/24 10:00 07/17/24 09:48 07/17/24 08:59
Vital Signs
Temp Pulse Resp BP Pulse Ox
98.2 F 77 12 112/55 94
07/17/24 08:24 07/17/24 10:00 07/17/24 10:00 07/17/24 09:48 07/17/24 08:59
Intake & Output
07/15/24 07/16/24 07/17/24 07/18/24
06:59 06:59 06:59 06:59
Intake Total 1071.5 / 1071.5 744 / 744 250 / 250 110 / 110
Output Total 1045 / 1045 415 / 415
Balance 26.5 / 26.5 329 / 329 250 / 250 110 / 110
Physical Exam
Physical Exam
General: Well developed, well nourished in NAD.
Neck: Supple, no JVD, HJR, carotids +2 B/L, no bruits bilaterally.
Heart: Non displaced PMI, RRR, no murmurs, No S3, S4, no rubs.
Lungs: Scattered rhonchi
Sternal dressings noted
Extremities: No clubbing, cyanosis or edema bilaterally.
Neuro: Grossly nonfocal, awake, alert and oriented x3.
--- NOTE | 2024-07-17 11:30 | CM ---
Chart reviewed. Patient is independent of ADLS, lives alone in a 2 STH, 6 SONJA, 0 DME. He uses a CPAP machine, and also has walker, cane, and also has a stair glide at home. Patient's son will be staying with the patient when he is medically
stable for discharge. Plan is for the patient to return home with his son and CT Transitional RN. CM to follow
--- NOTE | 2024-07-17 12:45 | PTCARENOTE ---
VSS, sinus rhythm maintained on tele. Pt tolerated cardiac rehab, pain is well controlled.
[2024-07-17 13:38] LABS: Glucose - Point of Care 110 mg/dl (70-99)
[2024-07-17] MEDS: FERRLECIT 110 MG IV (13:38)
[2024-07-17] MEDS: NOVOLOG FLEXPEN-MODERATE RESISTANCE SC (13:38)
[2024-07-17] MEDS: ZESTRIL 2.5 MG PO (14:06)
[2024-07-17] MEDS: NSS 500 IV (17:23)
[2024-07-17 18:23] LABS: Glucose - Point of Care 151 mg/dl (70-99)
--- NOTE | 2024-07-17 20:23 | PTCARENOTE ---
Assumed care of patient at 1900. Patient found oob in chair at time of assessment. Patient is AOx4, follows commands appropriately, moves all extremities. Lung sounds are clear and equal bilaterally, saO2 98% on RA, patient wears CPAP HS. Heart
sounds are audible, patient is SR with first deg AV block, pulses are palpable, there is +1 BLE edema present. Patient has active BS throughout all four quadrants, patient reports frequent BMs, abdomen is round/obese. Patient is voiding in the
bathroom using AUS. Patient has sternal incision approx with surg adhesive [employer]IT[employer], ABD dressing over CT wounds that is CDI. Patient has R IJ cordis receiiving KVO and R AC PIV. No c/o pain. VSS.
[2024-07-17] MEDS: VITAMIN D3 (cholecalciferol) 25 MCG PO (22:39)
[2024-07-18] VITALS (7 sets, daily range): BP systolic 108–127; BP diastolic 50–66; PULSE 75; O2SAT 95–98; BMI 41.6
--- NOTE | 2024-07-18 | PTCARENOTE ---
Patient reassessed. VSS. Remains SR with first deg AV block on the monitor. 4 beat run Vtach at approx 2246. CT PA aware no new orders at this time. Will continue to monitor.
[2024-07-18 00:16] LABS: Glucose - Point of Care 185 mg/dl (70-99)
[2024-07-18 04:27] LABS: Hematocrit 31.3 % (39.0-52.0); Mean Corp Hgb Conc. 35.1 g/dL (33.0-37.0); Mean Platelet Volume 10.2 fL (7.4-10.4); Platelet Count 124 10^3/uL (130-400); Red Blood Cell Count 3.44 10^6/uL (4.70-6.10); Red Cell Dist. Width 13.3 % (11.5-14.5); White Blood Cell Count 13.1 10^3/uL (4.8-10.8)
[2024-07-18 04:48] LABS: Blood Urea Nitrogen 27 mg/dl (9-20); Calcium 8.4 mg/dl (8.4-10.2); Carbon Dioxide 25 mmol/L (22-30); Chloride 100 mmol/L (98-107); Estimated Creatinine Clearance 91 ml/min; Glucose 134 mg/dl (70-99); Magnesium 2.5 mg/dl (1.6-2.3); Potassium 3.7 mmol/L (3.5-5.1); Sodium 135 mmol/L (135-145); eGFR > 60.00
--- NOTE | 2024-07-18 05:16 | W.PN.CT ---
Today's Communication / Plan
-
Plan:
-No major issues overnight. Hemodynamically and neurologically intact
-Soft BP postop has improved, tolerating BB and low dose LAMONTE-Il
-Urology reactivated his artificial urinary sphincter 07/16, currently without issues
-D/C cordis
-F/U 2-view cxr
-Cont. current meds (ASA, Amiodarone, Crestor, Toprol XL, Lisinopril)
-C/O loose stools 07/16, Senokot and Mag oxide placed on hold
-Gentle diuresis today/Replete K+
-Encourage use of IS
-OOB into chair/Ambulate
-D/C home tomorrow (wants another day because he lives alone)
Assessment / Plan
-
Assessment:
-S/P Sternotomy with standard aortic and right atrial cannulation/CABG x 1 (In situ VÁZQUEZ to LAD)/Surgical aortic valve replacement [25 mm bioprosthesis]/Left atrial appendage exclusion [35 mm clip], by Dr. Barnes, 07/14/24, pod#4
-Severe aortic valve stenosis, symptomatic
-Single-vessel coronary disease involving the proximal LAD
-LVEF 55%, improved to 65% postop per intraop MACARIO
-Hypertension
-Hyperlipidemia
-Osteoarthritis
-Multiple orthopedic issues
-Morbidly obese with a BMI of 40.7
-Diabetes mellitus type 2 (hgb A1C 6.0, not on any meds, diet controlled)
-Obstructive sleep apnea on CPAP
-History of urinary incontinence s/p Artificial Urinary Sphincter placement by Dr Joshua Collado at [facility] during 2022
-Prostate cancer status post robotic assisted prostatectomy, 08/08/2018
Acute postop blood loss/Anemia (stable without blood transfusion)
-Acute postop atelectasis
-Acute postop hypovolemia with subsequent hypervolemia
Discussed patient care with: Cardiology, Nursing, Respiratory Therapy, Pharmacy and Care Team
Subjective
Procedure
S/P Sternotomy with standard aortic and right atrial cannulation/CABG x 1 (In situ VÁZQUEZ to LAD)/Surgical aortic valve replacement [25 mm bioprosthesis]/Left atrial appendage exclusion [35 mm clip], by Dr. Barnes, 07/14/24
-
Date of Service: July 18, 2024
Pt c/o mild incisional pain, loose stools has improved
Objective Data
-
Lab Results
07/18/24 03:53
07/18/24 03:53
PT 17.2 Sec (11.4-14.6) H 07/14/24 17:02
INR 1.42 07/14/24 17:02
APTT 35.4 Sec (23.4-35.0) H 07/14/24 17:02
Vital Signs
Vital Signs
Temp Pulse Resp BP Pulse Ox
98.0 F 76 20 134/47 93
07/17/24 23:00 07/17/24 23:00 07/17/24 23:00 07/17/24 23:00 07/17/24 23:00
CT Intake/Output/Weight
07/17/24 07/17/24 07/18/24
06:59 18:59 06:59
Intake Total 120 / 250 120 / 120
Balance 120 / 250 120 / 120
SaO2: 93 (RA)
Physical Exam
-
General: Awake, Oriented and AOx3
Cardiovascular: Regular rate & rhythm, No Murmurs and No Gallop
Respiratory: Decreased Breath Sounds (at bases, otherwise clear)
Sternum: Stable
Incision: Clean, Dry, Intact and Dressing Intact
Extremities: Other (trace edema)
Data Reviewed
-
Lab Results: Results Reviewed
Medications: Active Meds Reviewed
CT Scan: Report Reviewed and Image Reviewed
ECG: Report Reviewed and Image Reviewed
[2024-07-18] MEDS: TYLENOL 1000 MG PO (06:25)
--- NOTE | 2024-07-18 07:23 | PTCARENOTE ---
Patient reassessed. VSS. AM labs obtained. AM hygiene care provided. Patient continues to have loose liquid bowel movement. Remains SR with first deg AV block. Patient stable.
[2024-07-18 07:59] LABS: Glucose - Point of Care 143 mg/dl (70-99)
--- NOTE | 2024-07-18 08:10 | PTCARENOTE ---
Patient received from manager telecom resting oob in chair, AAO X 3, states pain controlled at this time. NSR via cm, SaO2 @ 98% on RA. RIJ Cordis w/kvo infusing. All procedural sites stable. Dr. Barnes and team to bedside for am rounds, patient updated
to plan of care for the day, including pending d/c home, in agreement. See work list for full assessment and interventions performed.
[2024-07-18] MEDS: NOVOLOG FLEXPEN-MODERATE RESISTANCE SC (08:13)
[2024-07-18] MEDS: SENOKOT-S PO (08:18)
[2024-07-18] MEDS: PROTONIX 40 MG PO (08:21)
[2024-07-18] MEDS: TOPROL XL 12.5 MG PO (08:21)
[2024-07-18] MEDS: LOW STRENGTH ASPIRIN 81 MG PO (08:21)
[2024-07-18] MEDS: CRESTOR 40 MG PO (08:21)
[2024-07-18] MEDS: NEURONTIN 100 MG PO (08:21)
[2024-07-18] MEDS: ZESTRIL 2.5 MG PO (08:21)
[2024-07-18] MEDS: MUCINEX 600 MG PO (08:22)
[2024-07-18] MEDS: BACTROBAN 2% OINTMENT 1 APPLIC NASAL (08:22)
[2024-07-18] MEDS: PACERONE 200 MG PO (08:22)
[2024-07-18] MEDS: VITAMIN C 500 MG PO (08:22)
[2024-07-18] MEDS: LIDOCAINE 4% PATCH TOPICAL (08:26)
--- NOTE | 2024-07-18 09:59 | W.PN.CARDCBS ---
Today's Communication / Plan
-
Stable cardiology status for discharge
Impression / Plan
-
Primary Fourth Hand: Dr. Arce
Assessment:
S/P CABG x 1 (In situ VÁZQUEZ to LAD), Bioprosthetic AVR, IAN clip 07/14/24, Dr. Barnes
Severe
Prox LAD stenosis by cath
HTN
HLD
DM2
Obesity
REY
OA
History of urinary incontinence s/p Artificial Urinary Sphincter placement by Dr Joshua Collado at [facility] 2022
Prostate cancer s/p robotic assisted prostatectomy 07/2018
ECHO 03/13/24: Normal LVEF without regional wall motion abnormalities, severe
Plan:
Remains in sinus rhythm
Stable cardiology status for discharge
Discussed with CT surgery PA
Progress Note - Fourth Hand
Subjective
Date of Service: July 18, 2024
No complaints
Objective
Labs:
07/18/24 03:53
07/18/24 03:53
Labs
Hgb 11.0 g/dL (13.0-18.0) L 07/18/24 03:53
Hct 31.3 % (39.0-52.0) L 07/18/24 03:53
Plt Count 124 10^3/uL (130-400) L 07/18/24 03:53
PT 17.2 Sec (11.4-14.6) H 07/14/24 17:02
INR 1.42 07/14/24 17:02
APTT 35.4 Sec (23.4-35.0) H 07/14/24 17:02
Sodium 135 mmol/L (135-145) 07/18/24 03:53
Potassium 3.7 mmol/L (3.5-5.1) 07/18/24 03:53
BUN 27 mg/dl (9-20) H 07/18/24 03:53
Creatinine 1.0 mg/dL (0.7-1.3) 07/18/24 03:53
Glucose 134 mg/dl (70-99) H 07/18/24 03:53
Vital Signs and I&O:
Vital Signs
Temp Pulse Resp BP Pulse Ox
98.3 F 76 17 117/62 98
07/18/24 08:00 07/18/24 08:22 07/18/24 08:00 07/18/24 08:22 07/18/24 08:08
Vital Signs
Temp Pulse Resp BP Pulse Ox
98.3 F 76 17 117/62 98
07/18/24 08:00 07/18/24 08:22 07/18/24 08:00 07/18/24 08:22 07/18/24 08:08
Intake & Output
07/16/24 07/17/24 07/18/24 07/19/24
06:59 06:59 06:59 06:59
Intake Total 744 / 744 250 / 250 120 / 120 270 / 270
Output Total 415 / 415
Balance 329 / 329 250 / 250 120 / 120 270 / 270
Physical Exam
Physical Exam
General: Well developed, well nourished in NAD.
Neck: Supple, no JVD, HJR, carotids +2 B/L, no bruits bilaterally.
Heart: Non displaced PMI, RRR, no murmurs, No S3, S4, no rubs.
Lungs: Scattered rhonchi
Sternal dressings noted
Extremities: No clubbing, cyanosis or edema bilaterally.
Neuro: Grossly nonfocal, awake, alert and oriented x3.
--- NOTE | 2024-07-18 10:18 | W.[place]-PDMP ---
[place]-PD[place]
-
Checked the [place]- Prescription Drug Monitoring Program website, no red flags identified; safe to proceed with prescription.
--- NOTE | 2024-07-18 10:18 | W.DCSUMMARY ---
Discharge Summary
Discharge Data
Date of Admission: 07/14/24
Date of Discharge: 07/18/24
-
Pending Results: No
Hospital Course
Primary care physician:
Dr. Red Epperson MD.
Outpatient cosmetology instructor:
Dr. Clark Arce
Inpatient consultants:
1. Urology, Dr. Jeffrey Denton
Procedures:
1. Coronary artery bypass grafting x 1 with left internal mammary artery to left anterior descending coronary artery
2. Surgical aortic valve replacement with #25 millimeter bioprosthesis
3. Left atrial appendage exclusion with number 35 millimeter clip
4. Rigid sternal fixation with [address] Sanchez Barnes MD. on 07/14/24
Primary Diagnosis:
1. Severe aortic valve stenosis
2. Single-vessel coronary artery disease involving the proximal left anterior descending coronary artery
3. Hypertension
4. Hyperlipidemia
5. Ags-dprlmlv-gznwculsc diabetes mellitus type 2
6. History of colon polyps
7. Osteoarthritis
8. Obstructive sleep apnea on continuous positive airway pressure machine
9. Seasonal allergies
10. History of prostate cancer
11. Morbid obesity, BMI 41.6
12. Urinary incontinence post prostatectomy
13. Artificial urinary sphincter
Secondary Diagnoses:
1. Same as the above
HPI:
Patient is a 68-year-old male with severe aortic valve stenosis who recently became symptomatic. During his preoperative workup he underwent a left heart catheterization which revealed LAD disease with a positive ostial IFR. Multidisciplinary team
discussion was had and the patient was counseled on lifetime management for his aortic valve stenosis. It was ultimately recommended he undergo surgical aortic valve replacement as well as single-vessel coronary artery bypass grafting with left
internal mammary artery to left anterior descending coronary artery, and left atrial appendage clip. Patient was seen as an outpatient in consultation by Dr. Molly MD. and was deemed an appropriate candidate to undergo the procedure described
above. He presented electively on the date described above.
Hospital course:
Patient tolerated the procedure well. He was from cardiopulmonary bypass. He remained intubated. He was transported to the cardiovascular intensive care unit for further recovery. He arrived on nitroglycerin for hypertension
management. Chest tube output was acceptable, and he was successfully extubated on postoperative day 0. The patient's postoperative course was routine and negative for any complications or acute events. On postoperative day 1 he remained off all
pressor and inotropic drips. Vital signs were stable and he was saturating well on room air. Patient was declined and transferred to telemetry. Carter catheter was removed and replaced with a condom catheter. Plan was to reactivate the patient's
artificial sphincter per urology tomorrow. On postoperative day #2 the patient's chest tubes and pacing wires were removed routinely. His artificial sphincter was reactivated. His lisinopril and beta-blockade were resumed however the patient
became mildly hypotensive. On postoperative day #3 lisinopril and beta-blockade were held to allow blood pressure for diuresis. He was given 40 mg of IV Lasix and later that day lisinopril 2.5 mg was resumed. On postoperative day #4 no new events
occurred. Toprol XL 12.5 mg daily was resumed. Patient was also tolerating lisinopril. 2 view chest x-ray revealed no surgical concerns. Case was discussed with attending physician, and the patient was medically cleared to be discharged to home
on postoperative day #4.
Home medication changes:
Please pay attention to the following medication changes:
Acetaminophen 650 mg Q4H PRN-mild pain, fever
Cyclobenzaprine 5 mg Q8H PRN-muscle spasm
Gabapentin 100 mg TID-nerve pain. Stop once bottle is empty
Guaifenesin 600 mg [id number]/congestion
Lisinopril 2.5 mg/d-Hypertension
Oxycodone 2.5 mg Q4H PRN-moderate severe pain control. (cut 5 mg tab in 09/21)
Please stop taking the following medications:
Stop taking Lisinopril 5 mg daily and replace with 2.5 mg daily. Evaluate at follow up with Cardiology for increasing.
Discharge Plan
-
Patient Disposition: Home (Routine Discharge)
Discharge Diagnosis/Procedures: CAD//CABG/AVR
Condition: Fair
Diet: Low Cholesterol and Low Sodium
Activity: No strenuous activity
Driving Restrictions: Not until seen by your Dr
Bathing Restrictions: OK to Shower
Other Services: Cardiac Rehab
Specialty Instructions: Weigh Daily- Call MD for wt gain/loss 3 lbs overnight/5 lbs in 1 week
Activity Restrictions/Additional Instructions:
ACTIVITY:
-No strenuous activity: no heavy lifting, pushing, pulling anything over 15 pounds for one month
-continue to use stairs as tolerated
DRIVING RESTRICTIONS:
-No driving for one month or until approved by your surgeon
WOUND CARE:
-Shower daily. Use soap & water.
-No lotions, creams or powders on incision area.
DIET:
-continue a low fat/low cholesterol diet.
-IF you are diabetic, continue carb controlled diet.
CARDIAC REHAB:
-Please make appointment to start in 5-6 weeks with your local hospital program. (See Cardiac Rehabilitation Discharge Booklet).
SPECIALTY INSTRUCTIONS:
-Weigh yourself daily. Call your physician for any weight gain/loss of 3 lbs overnight or 5 lbs in one week.
-REPORT any clicking noise or uneven appearance of your sternum to your surgeon immediately.
-If you smoke, you are instructed to quit. The [place] smoking hotline phone number is [phone]
Please pay attention to the following medication changes:
Acetaminophen 650 mg Q4H PRN-mild pain, fever
Cyclobenzaprine 5 mg Q8H PRN-muscle spasm
Gabapentin 100 mg TID-nerve pain. Stop once bottle is empty
Guaifenesin 600 mg [id number]/congestion
Lisinopril 2.5 mg/d-Hypertension
Oxycodone 2.5 mg Q4H PRN-moderate severe pain control. (cut 5 mg tab in 09/21)
Please stop taking the following medications:
Stop taking Lisinopril 5 mg daily and replace with 2.5 mg daily. Evaluate at follow up with Cardiology for increasing.
Referrals:
CT Transitional Care Nurse [Outside] - in one to two days
(
The Cardiothoracic Transitional Care Nurse will call you to set up a visit in 1-2 days.)
[facility] [Outside] - 08/24/24 9:30 am
(Cardiac Rehab Orientation appointment is on 08/24/24 at 0930
The Cardiac Rehab gym is located on the first floor of the [facility].)
Marco Epperson DO [Family Provider] - in four to six weeks (PLease make an appointment in four to six weeks. )
Jaylen Barnes MD [Active] - 08/16/24 2:30 pm
Clark Arce DO [Active] - 08/28/24 8:00 am
Prescriptions:
New
cyclobenzaprine 10 mg Tablet
5 mg PO Q8HPRN PRN (Reason: muscle spasm) Qty: 30 0RF
acetaminophen 325 mg Tablet
650 mg PO Q4HPRN PRN (Reason: mild pain,headache,temp >101F ) Qty: 0 0RF
lisinopril 2.5 mg Tablet
2.5 mg PO DAILY Qty: 30 0RF
gabapentin 100 mg Capsule
100 mg PO TID Qty: 30 0RF
oxycodone 5 mg Tablet
2.5 mg PO Q4HPRN PRN (Reason: severe pain) Qty: 5 0RF
guaifenesin 600 mg Tablet Extended Release 12hr
600 mg PO Q12 Qty: 30 0RF
Continued
aspirin 81 MG tablet,delayed release (DR/EC)
81 mg PO HS
cholecalciferol (vitamin D3) [Vitamin D3] 1,000 UNIT capsule
1,000 unit PO HS
ascorbic acid (vitamin C) [Vitamin C] 500 mg Tablet
500 mg PO DAILY
rosuvastatin 40 mg tablet
40 mg PO DAILY Qty: 90 3RF
metoprolol succinate [Toprol XL] 25 mg tablet extended release 24 hr
25 mg PO DAILY Qty: 90 3RF
Discontinued
lisinopril 5 MG tablet
5 mg PO DAILY Qty: 30 0RF
Care Plan Goals
Care Plan Goals:
Problem: Readiness for enhanced knowledge related to diagnosis and treatment plan
Goal: Understand your diagnosis and treatment plan needs, including medications if applicable.
Instructions: Know your diagnosis, underlying causes and treatment plan options, including medications if applicable. Consult with your health care team to learn about your diagnosis and treatment plan, including medications if applicable.
Discharge Date and Time
Print Language: FAROESE
--- NOTE | 2024-07-18 10:29 | W.[place]-PDMP ---
[place]-PD[place]
-
Checked the [place]- Prescription Drug Monitoring Program website, no red flags identified; safe to proceed with prescription.
--- NOTE | 2024-07-18 11:18 | CM ---
Chart reviewed. Patient is independent of ADLS, lives with his significant other in a bilevel home, 5 SONJA, 0 DME. Plan is for the patient to return home with CT Transitional RN. CM to follow
--- NOTE | 2024-07-18 12:16 | PTCARENOTE ---
Patient set up to shower, completed independently. PIV removed. Discharge instructions thoroughly reviewed w/patient and son, all questions answered. Patient and all belongings transported to waiting vehicle for d/c home.
== END 2024-07-18 12:19 | disposition home or self-care (01) | DRG 220 ==
LOC: CVICU 08:32
PROVIDERS: Anesthesiology; Physician Assistant Medical; ADMITTING PHYSICIAN Thoracic Surgery (Cardiothoracic Vascular Surgery); CONSULT PHYSICIAN Internal Medicine Critical Care Medicine; FAMILY PHYSICIAN Family Medicine; OTHER PHYSICIAN Specialist
PROC: 02L70CK Occlusion of Left Atrial Appendage with Extraluminal Device, Open Approach (ICD-10-PCS; 2024-07-14)
PROC: 02RF08Z Replacement of Aortic Valve with Zooplastic Tissue, Open Approach (ICD-10-PCS; 2024-07-14)
PROC: 5A1221Z Performance of Cardiac Output, Continuous (ICD-10-PCS; 2024-07-14)
PROC: B24BZZ4 Ultrasonography of Heart with Aorta, Transesophageal (ICD-10-PCS; 2024-07-14)
PROC: 02100Z9 Bypass Coronary Artery, One Artery from Left Internal Mammary, Open Approach (ICD-10-PCS; 2024-07-14)
DX: I35.0 Nonrheumatic aortic (valve) stenosis (principal); D62 Acute posthemorrhagic anemia; Z68.41 Body mass index [BMI] 40.0-44.9, adult; J98.11 Atelectasis; I25.10 Atherosclerotic heart disease of native coronary artery without angina pectoris; M47.816 Spondylosis without myelopathy or radiculopathy, lumbar region; I10 Essential (primary) hypertension; G47.33 Obstructive sleep apnea (adult) (pediatric); E11.65 Type 2 diabetes mellitus with hyperglycemia; E78.00 Pure hypercholesterolemia, unspecified; E66.01 Morbid (severe) obesity due to excess calories; E86.1 Hypovolemia; E87.70 Fluid overload, unspecified; J30.2 Other seasonal allergic rhinitis; D69.6 Thrombocytopenia, unspecified; R32 Unspecified urinary incontinence; Z79.82 Long term (current) use of aspirin; Z79.899 Other long term (current) drug therapy; Z85.46 Personal history of malignant neoplasm of prostate
CPT/HCPCS: 88305; 88311; 36415; 71045; 71046; 80048; 80053; 81003; 82248; 82330; 82565; 82805; 82810; 82947; 82962; 83036; 83735; 84132; 84302; 84520; 85014; 85018; 85025; 85027; 85049; 85610; 85730; 86850; 86900; 86901; 86920; 87070; 87147; 93005; 93312; 93320; 93325; 93880; 94002; 94660; J2916

== ENCOUNTER 2024-09-18 08:51 | Outpatient (RCR) | payer MEDICARE, OTHER, SELFPAY | END 2024-09-18 23:59 | disposition home or self-care (01) | LOC: CRHB 08:51 | PROVIDERS: ATTENDING PHYSICIAN Internal Medicine Cardiovascular Disease | DX: I25.10 Atherosclerotic heart disease of native coronary artery without angina pectoris (principal); Z95.4 Presence of other heart-valve replacement; Z95.1 Presence of aortocoronary bypass graft | CPT/HCPCS: G0422; G0423 ==

== ENCOUNTER 2024-10-20 08:57 | Outpatient (RCR) | payer MEDICARE, OTHER, SELFPAY | END 2024-10-20 23:59 | disposition home or self-care (01) | LOC: CRHB 08:57 | PROVIDERS: ATTENDING PHYSICIAN Internal Medicine Cardiovascular Disease; FAMILY PHYSICIAN Family Medicine | DX: Z95.4 Presence of other heart-valve replacement (principal); Z95.1 Presence of aortocoronary bypass graft | CPT/HCPCS: G0422; G0423 ==

== ENCOUNTER → 2024-10-27 08:54 | Outpatient (REF) | payer MEDICARE, OTHER, SELFPAY | LOC: REG 08:54 | PROVIDERS: ATTENDING PHYSICIAN Family Medicine | DX: M25.511 Pain in right shoulder (principal) | CPT/HCPCS: 73030 ==

== ENCOUNTER 2024-11-17 08:43 | Outpatient (RCR) | payer MEDICARE, OTHER, SELFPAY | END 2024-11-17 23:59 | disposition home or self-care (01) | LOC: CRHB 08:43 | PROVIDERS: ATTENDING PHYSICIAN Internal Medicine Cardiovascular Disease; FAMILY PHYSICIAN Family Medicine | DX: Z95.1 Presence of aortocoronary bypass graft (principal); Z95.4 Presence of other heart-valve replacement | CPT/HCPCS: G0422; G0423 ==

== ENCOUNTER 2024-11-22 08:00 | Outpatient (RCR) | payer MEDICARE, OTHER, SELFPAY | END 2024-11-22 13:06 | disposition other institution (70) | LOC: CRHB 08:00 | PROVIDERS: ATTENDING PHYSICIAN Internal Medicine Cardiovascular Disease; FAMILY PHYSICIAN Family Medicine | DX: Z95.1 Presence of aortocoronary bypass graft (principal); Z95.4 Presence of other heart-valve replacement; I25.10 Atherosclerotic heart disease of native coronary artery without angina pectoris | CPT/HCPCS: G0422; G0423 ==

== ENCOUNTER → 2025-02-24 09:32 | Outpatient (REF) | payer MEDICARE, OTHER, SELFPAY ==
[2025-02-24 10:29] LABS: % Basophils 0.7 % (0-2); % Immature Granulocytes 0.3 % (0-0.5); % Lymphocytes 24.2 % (20.5-51.1); % Monocytes 9.7 % (1.7-9.3); % Neutrophils 62.1 % (42.2-75.2); Absolute Eosinophils 0.2 10^3/uL (0-0.7); Absolute Lymphocytes 1.5 10^3/uL (1.2-3.4); Absolute Monocytes 0.6 10^3/uL (0.1-0.6); Absolute Neutrophils 3.7 10^3/uL (1.4-6.5); Hemoglobin 15.6 g/dL (13.0-18.0); Mean Corp Hgb Conc. 34.7 g/dL (33.0-37.0); Mean Corpuscular Hgb 32.3 pg (27.0-31.0); Mean Corpuscular Volume 93.2 fL (80.0-94.0); Mean Platelet Volume 9.8 fL (7.4-10.4); Nucleated Red Blood Cells % 0 % (-); Platelet Count 146 10^3/uL (130-400); Red Blood Cell Count 4.83 10^6/uL (4.70-6.10); Red Cell Dist. Width 13.6 % (11.5-14.5)
[2025-02-24 10:51] LABS: ALT (SGPT) 23 U/L (0-50); AST (SGOT) 25 U/L (17-59); Albumin 4.5 g/dl (3.5-5.0); Alkaline Phosphatase 58 U/L (38-126); Blood Urea Nitrogen 11 mg/dl (9-20); Calcium 9.3 mg/dl (8.4-10.2); Carbon Dioxide 26 mmol/L (22-30); Chloride 108 mmol/L (98-107); Glucose 111 mg/dl (70-99); HDL Cholesterol 46 mg/dl; LDL Cholesterol, Calculated 71 mg/dl; Potassium 4.5 mmol/L (3.5-5.1); Sodium 140 mmol/L (135-145); Total Bilirubin 0.6 mg/dl (0.2-1.3); Total Cholesterol 131 mg/dl (50-199); Total Protein 7.5 g/dl (6.3-8.2); Triglyceride 70 mg/dl (10-149); Very Low Density Lipoprotein 14 mg/dl (0-30); eGFR > 60.00
[2025-02-24 10:53] LABS: Glycohemoglobin (HgbA1c) 5.9 % (4.0-5.6)
[2025-02-24 11:08] LABS: Vitamin D, 25-OH*** 43.1 ng/mL (30-80)
[2025-02-24 11:21] LABS: Microalbumin, Random Urine 1.7 mg/dl (0.6-1.7); Microalbumin/creatinine Ratio 13.5 mg/g
[2025-02-24 11:22] LABS: PSA, Total - Screen < 0.06 ng/ml (0.0-4.0); TSH 1.11 uIU/ml (0.47-4.68)
== END ==
LOC: REG 09:32
PROVIDERS: ATTENDING PHYSICIAN Family Medicine
DX: Z00.00 Encounter for general adult medical examination without abnormal findings (principal); E11.29 Type 2 diabetes mellitus with other diabetic kidney complication; E78.00 Pure hypercholesterolemia, unspecified; R97.20 Elevated prostate specific antigen [PSA]
CPT/HCPCS: 36415; 80053; 80061; 82043; 82306; 82570; 83036; 84443; 85025; G0103

== ENCOUNTER → 2025-03-21 06:51 | Outpatient (REF) | payer MEDICARE, OTHER, SELFPAY | LOC: RCS 06:51 | PROVIDERS: ATTENDING PHYSICIAN Internal Medicine Cardiovascular Disease; FAMILY PHYSICIAN Family Medicine | DX: I35.0 Nonrheumatic aortic (valve) stenosis (principal); I10 Essential (primary) hypertension | CPT/HCPCS: 93306 ==

== ENCOUNTER → 2025-09-05 08:42 | Outpatient (REF) | payer MEDICARE, OTHER, SELFPAY | LOC: REG 08:42 | PROVIDERS: ATTENDING PHYSICIAN Family Medicine | DX: M54.50 Low back pain, unspecified (principal) | CPT/HCPCS: 72100 ==